=== PATIENT | female | born 1945 | race Caucasian/White ===

== ENCOUNTER 2016-08-01 10:07 | Inpatient (IN) | payer MEDICARE ==
[~2016-08-01] VITALS: Ht 162.6 cm; Wt 84.0 kg
[2016-08-01 11:20] LABS: BASOPHILS 0.4 % (0-2); EOSINOPHILS 2.9 % (0-7); HEMATOCRIT 43.8 % (36.0-48.0); HEMOGLOBIN 14.6 g/dL (12-16); IMMATURE GRANULOCYTES 0.2 % (0-5); MCH 27.2 pg (26.0-34.0); MCHC 33.3 g/dL (31.0-37.0); MCV 81.7 fL (80.0-100.0); MEAN PLATELET VOLUME 11.4 fL (7.4-10.4); MONOCYTES 8.3 % (2-11); NEUTROPHILS 69.2 % (40-80); PLATELET COUNT 386 10x3/uL (130-400); RBC 5.36 10x6/uL (4.00-5.40); RDW 14.5 % (11.5-14.5); WBC 13.9 10x3/uL (4.8-10.8)
[2016-08-01 11:29] LABS: APPEARANCE CLOUDY (CLEAR); BILIRUBIN NEGATIVE (NEGATIVE); COLOR YELLOW (YELLOW); GLUCOSE NEGATIVE (NEGATIVE); KETONE NEGATIVE (NEGATIVE); LEUKOCYTE ESTERASE 2+ (NEGATIVE); NITRITE NEGATIVE (NEGATIVE); PROTEIN TRACE mg/dL (NEGATIVE); SPECIFIC GRAVITY 1.015 (1.005-1.020); UROBILINOGEN NORMAL (NORMAL)
[2016-08-01 11:30] LABS: BACTERIA MANY /hpf (NONE SEEN); EPITHELIAL CELLS 0-5 /hpf (0-5); RED CELLS - URINE 0-5 /hpf (0-5)
[2016-08-01 11:34] LABS: ALBUMIN 3.3 g/dL (3.4-5.0); ALKALINE PHOSPHATASE 69 U/L (46-116); ALT (SGPT) 33 U/L (10-68); BILIRUBIN - TOTAL 0.39 mg/dL (0.2-1.3); CALC OSMOLALITY 285 mosm/kg (275-300); CALCIUM 9.2 mg/dL (8.5-10.1); CARBON DIOXIDE 26.2 mmol/L (21.0-32.0); CHLORIDE - SERUM 105 mmol/L (98-107); CREATININE - SERUM 0.7 mg/dL (0.6-1.3); POTASSIUM - SERUM 3.5 mmol/L (3.5-5.1); PROTEIN - SERUM 7.3 g/dL (6.4-8.2); SODIUM 142 mmol/L (136-145); UREA NITROGEN 12 mg/dL (7-18); eGFR NON AFRICAN AMERICAN 88 mL/min (90-120)
[2016-08-01 11:37] LABS: GLUCOSE 147 mg/dL (74-106)
[2016-08-01 14:35] VITALS: BP 149/75; BMI 31.8
--- NOTE | 2016-08-01 16:51 | NUR ---
Rehab Note- Acute Rehab Prescreen order received. The patient is a new admit. Will need a PT eval prior to acute rehab. Awaiting eval at this time. Will follow the patient at this time. Thank you for this referral! Aylin Basilio RN Clinical Liaison, [facility] Rehab/[place]
--- NOTE | 2016-08-01 18:00 | NUR ---
SCDS ORDERED FOR PT HOWEVER PT DENIES WANTING TO WEAR THEM. PT IS AMBULATORY AT TIMES TO BSC AND TOILET.
[2016-08-01 19:33] LABS: CKMB 0.7 U/L (0.0-3.6); CREATINE KINASE 45 UL (21-215)
[2016-08-01 19:57] LABS: TROPONIN-I < 0.017 ng/mL (0.000-0.060)
--- NOTE | 2016-08-01 21:00 | NUR ---
BS 81, NO COVERAGE PER S/S. PT DENIES PAIN OR NEEDS, BED LOW, CL IN REACH.
[2016-08-01 21:42] VITALS: BP 165/81
--- NOTE | 2016-08-01 22:53 | NUR ---
INFORMED BY LAB KALA THAT PTS IV OUT, ENTERED ROOM, IV CATH LAYING ON TOP OF BED, TIP INTACT, PT STATED THAT SHE HAD A ACCIDENT. HELD PRESSURE ON RIGHT HAND UNTIL BLEEDING STOPPED. CLEAND UP PT, BED AND FLOOR. WILL ATTEMPT TO SITE IV SHORTLY.
[2016-08-01 23:39] VITALS: BP 156/83
[2016-08-01 23:41] LABS: CKMB 0.8 U/L (0.0-3.6); CREATINE KINASE 47 UL (21-215); TROPONIN-I < 0.017 ng/mL (0.000-0.060)
[2016-08-01] MEDS ORDERED: NORVASC5 MG PO (23:42)
[2016-08-01] MEDS ORDERED: LANTUS SOL100 UNIT/1 SC (23:42)
[2016-08-01] MEDS ORDERED: PRINIVIL20 MG PO (23:43)
[2016-08-01] MEDS ORDERED: GLUCOPHAGE500 MG PO (23:43)
[2016-08-01] MEDS ORDERED: MIRALAX17 GM PO (23:44)
[2016-08-01] MEDS ORDERED: HUMULIN R100 U/ML SC (23:45)
[2016-08-01] MEDS ORDERED: NOVOLOG MIX 70/10 ML SC (23:45)
[2016-08-01] MEDS ORDERED: SENNA PLUS TA1 UDTAB PO (23:46)
--- NOTE | 2016-08-02 00:05 | NUR ---
IV RESITED TO RIGHT FOREARM, 22 GAUGE, FIRST ATTEMPT. PT TOLERATED WELL, FLUIDS RESUMED AT PREVIOUS RATE.
[2016-08-02 04:01] VITALS: BP 154/82
--- NOTE | 2016-08-02 04:16 | NUR ---
RESTING WITH EYES CLOSED, RESPERATIONS EVEN, NO S/S DISTRESS NOTED.
[2016-08-02 05:59] LABS: BASOPHILS 0.6 % (0-2); EOSINOPHILS 4.9 % (0-7); HEMATOCRIT 44.5 % (36.0-48.0); HEMOGLOBIN 14.7 g/dL (12-16); IMMATURE GRANULOCYTES 0.3 % (0-5); MCH 27.1 pg (26.0-34.0); MCV 82.1 fL (80.0-100.0); MONOCYTES 11.4 % (2-11); NEUTROPHILS 58.8 % (40-80); PLATELET COUNT 389 10x3/uL (130-400); RBC 5.42 10x6/uL (4.00-5.40); RDW 14.5 % (11.5-14.5); WBC 10.7 10x3/uL (4.8-10.8)
[2016-08-02 06:30] LABS: ALBUMIN 3.2 g/dL (3.4-5.0); ALKALINE PHOSPHATASE 65 U/L (46-116); ALT (SGPT) 36 U/L (10-68); BILIRUBIN - TOTAL 0.45 mg/dL (0.2-1.3); CALC OSMOLALITY 283 mosm/kg (275-300); CALCIUM 8.9 mg/dL (8.5-10.1); CARBON DIOXIDE 27.6 mmol/L (21.0-32.0); CHLORIDE - SERUM 106 mmol/L (98-107); CHOL - HDL RATIO 6.7 ratio (2.3-4.1); CHOLESTEROL, TOTAL 193 mg/dL (0-200); CKMB 1.2 U/L (0.0-3.6); CREATINE KINASE 63 UL (21-215); CREATININE - SERUM 0.5 mg/dL (0.6-1.3); GLUCOSE 86 mg/dL (74-106); HDL CHOLESTEROL 29 mg/dL (32-96); LDL CHOLESTEROL 146 mg/dL (0-100); POTASSIUM - SERUM 3.3 mmol/L (3.5-5.1); PROTEIN - SERUM 7.2 g/dL (6.4-8.2); SODIUM 144 mmol/L (136-145); TRIGLYCERIDE 90 mg/dL (30-200); TROPONIN-I < 0.017 ng/mL (0.000-0.060); UREA NITROGEN 8 mg/dL (7-18); eGFR NON AFRICAN AMERICAN > 90 mL/min (90-120)
[2016-08-02 08:24] VITALS: BP 184/95
--- NOTE | 2016-08-02 09:39 | NUR ---
REHAB PRESCREENING Rehab continues to follow this patient for PT/OT/ST evaluations. Thank you for this referral! Barbra Temple, SPECIMEN TECHNICIAN Poultry Hatchery Supervisor, Rehab
--- NOTE | 2016-08-02 10:03 | NUR ---
PT INCONTINENT OF URINE. CHANGED LINENS AND PROVIDED NEW GOWN. PULLED PT UP IN BED. PT SWALLOWED MORNING MEDS WITHOUT ANY DIFFICULITES. PT RESTING AND DENIES ANY CURRENT PAIN OR NEEDS. CL IN REACH. WILL CTM.
--- NOTE | 2016-08-02 11:52 | NUR ---
FSBS 164. PT REC'D 2 UNITS PER SS INSULIN. PT SITTING UP IN BED EATING ICE CHIPS WITH FAMILY AT BEDSIDE. FAMILY STATES PT IS MUCH MORE CLEAR AND ORIENTED COMPARED TO YESTERDAY. NO FURTHER NEEDS AT THIS TIME. CL IN REACH, BED IN LOWEST, SIDE RAILS X2. WILL CTM.
[2016-08-02 12:01] VITALS: BP 186/95
--- NOTE | 2016-08-02 13:32 | NUR ---
RATIONALE FOR SCD'S EXPLAINED. REFUSED SCD'S
--- NOTE | 2016-08-02 14:03 | NUR ---
INITIATED PTS IVPB ROCEPHIN TO BE INFUSED OVER 30 MINS. INFUSING VIA R.FA PIV WITH DRSG CDI AND SWAB CAPS IN USE. PT IS SITTING UP IN BEDSIDE CHAIR WITH FAMILY VISITING. PT DENIES ANY CURRENT PAIN OR NEEDS. CL IN REACH, WILL CTM.
[2016-08-02 14:51] VITALS: Ht 162.6 cm; Wt 84.0 kg
[2016-08-02 16:00] VITALS: BP 165/135
--- NOTE | 2016-08-02 16:50 | NUR ---
CT CAME AND NOTIFIED ME THAT THEY NEED A [address] SCAN. ATTEMPTED X2 AND WAS NOT SUCCESSFUL. HAD RIC, MEDICAL CLINIC MANAGER COME AND SHE PLACED A 20 GUAGE IN PTS R.HAND X2 ATTEMPTS. REMOVED R.FA PIV THAT WAS A 22 GUAGE WITH CATHETER TIP FULLY INTACT. PT READY TO HAVE CT DONE. WILL CTM.
--- NOTE | 2016-08-02 17:03 | NUR ---
OT NOTE: PT COMPLETED SIT TO STAND WITH SBA/CGA. PT COMPLETED BUE AROM EXS FOR INCREASED AX SUSHIL. PT COMPLETED GROOMING WITH SET UP. THANK YOU, ALEC MORA/Charles
--- NOTE | 2016-08-02 19:20 | NUR ---
RECEIVED REPORT, PT SLEEPING, BED IS LOW, SRX2, BED ALARM IS ON, WILL CONTINUE PLAN OF CARE
[2016-08-02 20:19] VITALS: BP 158/79
[2016-08-03 00:41] VITALS: BP 178/89
--- NOTE | 2016-08-03 04:00 | NUR ---
ASSESSMENT COMPLETE, SEE FLOWSHEET, PT SLEEPING, BED ALARM IS ON, SRX2, BED IS LOW, WILL CONTINUE TO MONITOR
[2016-08-03 04:23] VITALS: BP 173/84
[2016-08-03 05:50] LABS: BASOPHILS 0.8 % (0-2); EOSINOPHILS 5.6 % (0-7); HEMATOCRIT 42.2 % (36.0-48.0); HEMOGLOBIN 13.9 g/dL (12-16); IMMATURE GRANULOCYTES 0.3 % (0-5); LYMPHOCYTES 26.9 % (15-50); MCHC 32.9 g/dL (31.0-37.0); MCV 81.9 fL (80.0-100.0); MEAN PLATELET VOLUME 11.3 fL (7.4-10.4); NEUTROPHILS 54.4 % (40-80); PLATELET COUNT 370 10x3/uL (130-400); RBC 5.15 10x6/uL (4.00-5.40); RDW 14.6 % (11.5-14.5); WBC 9.5 10x3/uL (4.8-10.8)
[2016-08-03 06:27] LABS: ALBUMIN 3.1 g/dL (3.4-5.0); ALKALINE PHOSPHATASE 66 U/L (46-116); ALT (SGPT) 34 U/L (10-68); BILIRUBIN - TOTAL 0.53 mg/dL (0.2-1.3); CALCIUM 8.8 mg/dL (8.5-10.1); CARBON DIOXIDE 24.3 mmol/L (21.0-32.0); CHLORIDE - SERUM 106 mmol/L (98-107); CREATININE - SERUM 0.5 mg/dL (0.6-1.3); PROTEIN - SERUM 6.6 g/dL (6.4-8.2); SODIUM 142 mmol/L (136-145); eGFR NON AFRICAN AMERICAN > 90 mL/min (90-120)
[2016-08-03 06:29] LABS: CALC OSMOLALITY 286 mosm/kg (275-300); GLUCOSE 176 mg/dL (74-106); POTASSIUM - SERUM 4.1 mmol/L (3.5-5.1); UREA NITROGEN 13 mg/dL (7-18)
[2016-08-03 08:00] VITALS: BP 180/84
--- NOTE | 2016-08-03 11:43 | NUR ---
This patient meets criteria for the IRF and will be accepted today if the physician agrees. Albina Campbell RN Clinical Liaison, Rehab
--- NOTE | 2016-08-03 11:57 | NUR ---
FSBS 259. PT REC'D 6 UNITS OF INSULIN PER SS. PT SITTING UP IN BEDSIDE CHAIR RESTING QUIETLY. DENIES ANY CURRENT PAIN OR NEEDS AT THIS TIME. CL IN REACH. WILL CTM.
[2016-08-03 12:00] VITALS: BP 141/72
--- NOTE | 2016-08-03 14:42 | NUR ---
INITIATED PTS IVPB ROCEPHIN INFUSING VIA R.HAND PIV WITH DRSG CDI AND SWAB CAPS IN USE. PT RESTING QUIETLY IN BED WITH EYES CLOSED. NO CURRENT NEEDS NOTED AT THIS TIME. WILL CTM.
[2016-08-03 15:52] VITALS: BP 160/67
[2016-08-03] MEDS ORDERED: PLAVIX75 MG PO (15:54)
[2016-08-03] MEDS ORDERED: ASPIRIN81 MG PO (15:54)
[2016-08-03] MEDS ORDERED: LIPITOR20 MG PO (15:54)
[2016-08-03] MEDS ORDERED: PROTONIX40 MG PO (15:55)
--- NOTE | 2016-08-03 16:52 | NUR ---
FSBS 225. PT REC'D 4 UNITS OF HER INSULIN PER SS. PT IS RESTING QUIETLY IN BED AND DENIES ANY CURRENT PAIN OR NEEDS. CL IN REACH. WILL CTM.
--- NOTE | 2016-08-03 18:39 | NUR ---
DISCHARGE TEACHING PROVIDED BUT PT UNABLE TO SIGN DUE TO COGNITIVE DELAY. REPORT CALLED TO RODERICK FROM [facility]PATIENT [facility] GOING TO ROOM 1111B. NO FURTHER NEEDS. PT BEING TRANSPORTED NOW.
== END 2016-08-03 18:43 | DRG 65 ==
LOC: D.ER 10:07 → D.M2 14:09
PROVIDERS: Emergency Medicine Emergency Medical Services; ADMIT Family Medicine
DX: I63.233 Cerebral infarction due to unspecified occlusion or stenosis of bilateral carotid arteries (principal); N39.0 Urinary tract infection, site not specified; E11.65 Type 2 diabetes mellitus with hyperglycemia; R40.2143 Coma scale, eyes open, spontaneous, at hospital admission; R40.2363 Coma scale, best motor response, obeys commands, at hospital admission; R40.2253 Coma scale, best verbal response, oriented, at hospital admission

== ENCOUNTER 2016-08-03 19:09 | Inpatient (IN) | payer MEDICARE ==
[~2016-08-03] VITALS: Ht 162.6 cm; Wt 91.2 kg
[~2016-08-03 19:09] MED LIST: ASPIRIN81 MG PO; GLUCOPHAGE500 MG PO; HUMULIN R100 U/ML SC; LANTUS SOL100 UNIT/1 SC; LIPITOR20 MG PO; MIRALAX17 GM PO; NORVASC5 MG PO; NOVOLOG MIX 70/10 ML SC; PLAVIX75 MG PO; PRINIVIL20 MG PO; PROTONIX40 MG PO; SENNA PLUS TA1 UDTAB PO
--- NOTE | 2016-08-03 19:15 | NUR ---
PT RESTING IN BED, ADMISSION PROCESS INITIATED, PT STATES SHE IS VERY TIRED, DIFFICULT TO ARROUSE.
--- NOTE | 2016-08-03 20:30 | NUR ---
PT AROUSED, PT UNABLE TO SIGN NAME OR APPEAR TO UNDERSTAND THE ADMISSION FORMS. PT HAD DIFFICULTY WITH HTE MOTOR SKILLS TO WRITE OWN NAME. ALLOWED EXTRA TIME AND PT APPEARED TO WRITE A LETTER ON THE FORM. WILL WAIT TILL MORNING FOR FAMILY MEMBER OR OTHER TO ASSIST WITH THE SIGNING OF FORMS. PT INCONTINENT OF URINE, CLEANSED AND CHANGED, PT APPEARS TO BE UNAWARE OF BEING INCONTINENT. RESPIRATIONS REGULAR AND UNLABORED.
[2016-08-03 22:08] VITALS: BP 173/82; BMI 34.5
--- NOTE | 2016-08-04 03:39 | NUR ---
INCONTINENT OF URINE, CLEANSED, PT AWOKE DURING INTERVENTION, NEEDS ASSISTANCE TO ROLL OVER.
[2016-08-04 06:33] LABS: BASOPHILS 0.4 % (0-2); EOSINOPHILS 6.3 % (0-7); HEMATOCRIT 43.7 % (36.0-48.0); HEMOGLOBIN 14.4 g/dL (12-16); IMMATURE GRANULOCYTES 0.3 % (0-5); LYMPHOCYTES 25.8 % (15-50); MCH 26.9 pg (26.0-34.0); MCV 81.7 fL (80.0-100.0); MEAN PLATELET VOLUME 11.2 fL (7.4-10.4); MONOCYTES 10.6 % (2-11); NEUTROPHILS 56.6 % (40-80); PLATELET COUNT 347 10x3/uL (130-400); RBC 5.35 10x6/uL (4.00-5.40); RDW 14.4 % (11.5-14.5); WBC 9.6 10x3/uL (4.8-10.8)
[2016-08-04 06:54] LABS: CALC OSMOLALITY 282 mosm/kg (275-300); CALCIUM 8.8 mg/dL (8.5-10.1); CARBON DIOXIDE 26.3 mmol/L (21.0-32.0); CHLORIDE - SERUM 108 mmol/L (98-107); CREATININE - SERUM 0.5 mg/dL (0.6-1.3); GLUCOSE 131 mg/dL (74-106); POTASSIUM - SERUM 3.5 mmol/L (3.5-5.1); SODIUM 142 mmol/L (136-145); UREA NITROGEN 8 mg/dL (7-18); eGFR NON AFRICAN AMERICAN > 90 mL/min (90-120)
--- NOTE | 2016-08-04 07:50 | NUR ---
PT IS RESTING IN BED WITH EYES OPEN. ALERT TO SELF. PT IS SLOW TO RESPOND TO ANY QUESTIONING. SHE OBEYS COMMANDS, BUT SEEMS IF SHE DOES NOT UNDERSTAND WHEN ASKED TO SPEAK. NOTED TO BE INC. OF URINE. TONI CARE AND PAD CHANGE DONE. SR'S ARE UP X 3 IN BED. CALL LIGHT AND BEDSIDE TABLE ARE WITHIN EASY REACH.
--- NOTE | 2016-08-04 09:56 | NUR ---
PT IS PARTICIPATING IN THERAPY AT THIS TIME.
[2016-08-04 11:35] VITALS: BP 159/74
--- NOTE | 2016-08-04 12:26 | NUR ---
PT IS RESTING IN HER ROOM EATING LUNCH. VISITOR IS AT BEDSIDE.
[2016-08-04 12:39] VITALS: Ht 162.6 cm; Wt 91.2 kg
--- NOTE | 2016-08-04 14:38 | NUR ---
PT IS RESTING IN BED BETWEEN THERAPY. NO NEEDS VOICED.
--- NOTE | 2016-08-04 16:00 | NUR ---
RESTING QUIETLY.CL IN REACH.
--- NOTE | 2016-08-04 17:34 | NUR ---
PT IS RESTING IN BED WITH HOB ELEVATED 45 DEGREES FEEDING HERSELF SUPPER. NO SWALLOW PROBLEMS NOTED.
[2016-08-04 20:10] VITALS: BP 138/64
--- NOTE | 2016-08-05 | NUR ---
RESTING IN BED, EYES CLOSED.
--- NOTE | 2016-08-05 02:00 | NUR ---
IN BED, EYES CLOSED. SNORING SOFTLY.
--- NOTE | 2016-08-05 04:07 | NUR ---
RESTING IN BED, EYES CLOSED. CONTINUES SNORING SOFTLY. NO DISTRESS NOTED.
--- NOTE | 2016-08-05 06:15 | NUR ---
CLEANSED AND CHANGED PATIENT FROM LARGE URINARY INCONTINENCE. REQUIRED A COMPLETE LINEN CHANGE WELL FRESH SCRUB TOP AND PULL-UP. FSBS 89. GAVE PATIENT 4 OZS ORANGE JUICE TO SUPPORT BLOOD SUGAR UNTIL BREAKFAST.
[2016-08-05 07:16] LABS: BASOPHILS 0.5 % (0-2); EOSINOPHILS 4.8 % (0-7); HEMATOCRIT 42.7 % (36.0-48.0); IMMATURE GRANULOCYTES 0.3 % (0-5); LYMPHOCYTES 27.1 % (15-50); MCH 26.8 pg (26.0-34.0); MCHC 32.8 g/dL (31.0-37.0); MCV 81.8 fL (80.0-100.0); MEAN PLATELET VOLUME 11.4 fL (7.4-10.4); MONOCYTES 7.4 % (2-11); NEUTROPHILS 59.9 % (40-80); PLATELET COUNT 361 10x3/uL (130-400); RBC 5.22 10x6/uL (4.00-5.40); RDW 14.6 % (11.5-14.5); WBC 10.7 10x3/uL (4.8-10.8)
[2016-08-05 07:24] LABS: CALC OSMOLALITY 285 mosm/kg (275-300); CALCIUM 8.9 mg/dL (8.5-10.1); CARBON DIOXIDE 26.8 mmol/L (21.0-32.0); CHLORIDE - SERUM 106 mmol/L (98-107); CREATININE - SERUM 0.6 mg/dL (0.6-1.3); GLUCOSE 114 mg/dL (74-106); POTASSIUM - SERUM 3.3 mmol/L (3.5-5.1); SODIUM 143 mmol/L (136-145); eGFR NON AFRICAN AMERICAN > 90 mL/min (90-120)
[2016-08-05 07:25] LABS: UREA NITROGEN 12 mg/dL (7-18)
[2016-08-05 07:26] LABS: HEMOGLOBIN A1C 6.6 % (4.8-6.0)
--- NOTE | 2016-08-05 07:40 | NUR ---
RESTING QUIETLY IN BED CALL LIGHT IN REACH
--- NOTE | 2016-08-05 10:00 | NUR ---
PT IS PARTICIPATING IN THERAPY AT THIS TIME.
[2016-08-05 11:16] VITALS: BP 149/81
--- NOTE | 2016-08-05 15:24 | NUR ---
PT RESTING IN BED WITH EYES CLOSED.
--- NOTE | 2016-08-05 17:47 | NUR ---
PT IS RESTING IN HER WC IN HER ROOM AWAITING SUPPER. NO ACUTE DISTRESS NOTED.
[2016-08-05 19:08] VITALS: BP 162/70
--- NOTE | 2016-08-05 19:40 | NUR ---
ASSISTED PATIENT TO WHERE SHE URINATED AND HAD A MEDIUM VOLUME SOFT BM. ALSO HAD A VERY LARGE URINE INCONTINENCE IN BRIEF PRIOR TO TRIP TO . CLEANSED HER FROM THIS AND BM. APPLIED FRESH PULL-UP BRIEF AND RETURNED HER TO BED.
--- NOTE | 2016-08-05 21:30 | NUR ---
ASSESSMENT COMPLETE. FSBS 151. HELD SLIDING SCALE INSULIN PATIENT NOW RECEIVES LANTUS INSULIN, 54 UNITS SC IN LUQ ABDOMEN. GAVE PATIENT HER HS SNACK.
--- NOTE | 2016-08-05 22:05 | NUR ---
RETURNED AND LOWERED PATIENT'S HOB ON COMPLETION OF HS SNACK.
--- NOTE | 2016-08-06 | NUR ---
IN BED, RESTING QUIETLY, EYES CLOSED.
--- NOTE | 2016-08-06 01:55 | NUR ---
AWOKE PATIENT FOR TOILETING. ASSISTED HER UP TO BR TO URINATE. PATIENT HAD A VERY SMALL BM AND SCANT URINE AFTER LARGE URINE INCONTINENCE IN BREIF. CHANGED HER BRIEF AND PINK PAD AND RETURNED HER TO BED.
--- NOTE | 2016-08-06 04:45 | NUR ---
RESTING IN BED, EYES CLOSED. RESPIRING QUIETLY.
--- NOTE | 2016-08-06 07:30 | NUR ---
PT IS RESTING IN BED WITH EYES CLOSED. AWOKE EASILY TO VERBAL STIMULI. ALERT TO SELF AND PLACE. PT STATES SHE SLEPT WELL, AND HAS NO PAIN, BUT WOULD NOT ANSWER ANY OTHER QUESTIONS. INC. CARE GIVEN AT THIS TIME, AND PT DRESSED FOR THERAPY. SR'S ARE UP X 3 IN BED. CALL LIGHT AND BEDSIDE TABLE ARE WITHIN EASY REACH.
[2016-08-06 07:45] VITALS: BP 158/83
--- NOTE | 2016-08-06 09:55 | NUR ---
PT IS PARTICIPATING IN THERAPY AT THIS TIME.
--- NOTE | 2016-08-06 11:40 | NUR ---
PT IS PARTICIPATING IN THERAPY AT THIS TIME.
--- NOTE | 2016-08-06 14:18 | NUR ---
PT IS RESTING IN BED WITH EYES CLOSED.
--- NOTE | 2016-08-06 16:34 | NUR ---
PT ASSISTED TO THE BATHROOM WITH SBA FOR TOILETING. SMALL BM NOTED. PT WAS INC. OF A LARGE AMOUNT OF URINE. INC CARE AND BRIEF CHANGE DONE. NO FURTHER NEEDS VOICED.
--- NOTE | 2016-08-06 18:30 | NUR ---
RESTING QUIETLY IN BED CALL LIGHT IN REACH
[2016-08-06 19:00] VITALS: BP 163/71
--- NOTE | 2016-08-06 19:00 | NUR ---
ASSISTED PATIENT UP TO BR TO TOILET. PATIENT HAD SMALL AMT OF URINE IN COMMODE WELL A MEDIUM VOLUME BM. ALSO CHANGED HER BRIEF DUE TO PRIOR MODERATE INCONTINENCE WHILE SEATED AT BEDSIDE.
--- NOTE | 2016-08-06 21:00 | NUR ---
FSBS 103. GAVE PATIENT HS SNACK CONSISTING OF 8 OZS 2% MILK AND 6 KEITH CRAX SQUARES. ASSESSMENT COMPLETE. SCHEDULED DOSE OF 54 UNITS OF LANTUS INSULIN WAS GIVEN TO PATIENT SC INJ IN RIGHT ABDOMEN.
--- NOTE | 2016-08-06 21:45 | NUR ---
REMAINS AWAKE. LOWERED HOB TO 15 DEGREES FOR HS. DENIES NEEDS.
--- NOTE | 2016-08-06 23:45 | NUR ---
PATIENT WAS JUST ASSISTED TO SHOWER, DRESSED AND RETURNED TO BED AFTER FULL LINEN CHANGE. ALL ASSISTANCE WAS PROVIDED BY ROLLING DOWN MACHINE OPERATOR.
--- NOTE | 2016-08-07 02:00 | NUR ---
CONTINUES IN BED, EYES CLOSED. NO APPARENT DISTRESS.
--- NOTE | 2016-08-07 04:40 | NUR ---
RESTING QUIETLY IN BED, EYES CLOSED.
--- NOTE | 2016-08-07 06:00 | NUR ---
IN BED, AWAKE. WATCHING TV AFTER RECENT PULL-UP AND BOTTOM LINEN CHANGE DUE TO LARGE URINARY INCONTINENCE. FSBS 95. DENIES NEEDS.
--- NOTE | 2016-08-07 08:30 | NUR ---
SITTING UP EATING BREAKFAST DENIES NEEDS CALL LIGHT IN REACH
--- NOTE | 2016-08-07 10:02 | NUR ---
PT IS RESTING QUIETLY IN BED WITH EYES CLOSED. RESPS ARE EVEN AND UNLABORED. NO ACUTE DISTRESS NOTED.
[2016-08-07 10:52] VITALS: BP 151/61
--- NOTE | 2016-08-07 12:34 | NUR ---
PT IS LYING IN BED WITH HOB ELEVATED 45 DEGREES. FEEDING SELF LUNCH. NO ACUTE DISTRESS NOTED.
--- NOTE | 2016-08-07 15:00 | NUR ---
RESTING IN BED WITH EYES OPEN. 2 FAMILY MEMBERS AT BEDSIDE. NO DISTRESS NOTED.
--- NOTE | 2016-08-07 17:32 | NUR ---
PT IS RESTING IN BED FEEDING SELF SUPPER. NO NEEDS VOICED.
--- NOTE | 2016-08-07 20:07 | NUR ---
PT DENIES PAIN, RESTING IN SUPINE POSITION WATCHING TV. ASSISTED WITH COMPLETING MENU.
[2016-08-08 02:46] VITALS: BP 165/61
--- NOTE | 2016-08-08 04:43 | NUR ---
PT RESTING WITH EYES CLOSED, RESPIRATIONS REGULAR AND UNLABORED, NO S/S OF ACUTE DISTRESS.
--- NOTE | 2016-08-08 06:55 | NUR ---
PT INCONTINENT, PT WHEN ENCOURAGEED WILL GET UP AND URINATE IN TOILET.
[2016-08-08 07:35] LABS: BASOPHILS 0.4 % (0-2); EOSINOPHILS 4.9 % (0-7); HEMATOCRIT 42.1 % (36.0-48.0); HEMOGLOBIN 13.9 g/dL (12-16); IMMATURE GRANULOCYTES 0.2 % (0-5); LYMPHOCYTES 24.3 % (15-50); MCH 27.2 pg (26.0-34.0); MCV 82.4 fL (80.0-100.0); MEAN PLATELET VOLUME 11.8 fL (7.4-10.4); MONOCYTES 10.1 % (2-11); NEUTROPHILS 60.1 % (40-80); PLATELET COUNT 332 10x3/uL (130-400); RBC 5.11 10x6/uL (4.00-5.40); RDW 14.7 % (11.5-14.5); WBC 9.8 10x3/uL (4.8-10.8)
[2016-08-08 07:54] LABS: CALC OSMOLALITY 281 mosm/kg (275-300); CARBON DIOXIDE 29.7 mmol/L (21.0-32.0); CHLORIDE - SERUM 105 mmol/L (98-107); CREATININE - SERUM 0.5 mg/dL (0.6-1.3); GLUCOSE 89 mg/dL (74-106); POTASSIUM - SERUM 3.6 mmol/L (3.5-5.1); SODIUM 142 mmol/L (136-145); UREA NITROGEN 13 mg/dL (7-18); eGFR NON AFRICAN AMERICAN > 90 mL/min (90-120)
--- NOTE | 2016-08-08 08:15 | NUR ---
SITTING UP EATING BREAKFAST DENIES NEEDS CALL LIGHT IN REACH
--- NOTE | 2016-08-08 08:15 | NUR ---
PT RESTING IN BED EATING BREAKFAST TOLERATING WELL CALL LIGHT IN REACH WILL MONITER
[2016-08-08 12:19] VITALS: BP 148/64
--- NOTE | 2016-08-08 16:32 | NUR ---
PT RESTING IN BED WITH EYES OPEN CALL LIGHT IN REACH WILL MONITER
--- NOTE | 2016-08-08 19:22 | NUR ---
PT SITTING UP IN W/C, APPEARS TO BE DOZING.
[2016-08-08 19:24] VITALS: BP 136/87
[2016-08-09 10:32] VITALS: BP 141/60
--- NOTE | 2016-08-09 15:13 | NUR ---
PT RESTING IN BED WITH EYES OPEN CALL LIGHT IN REACH NO PROBLEMS WILL MONITER
--- NOTE | 2016-08-09 17:53 | NUR ---
RESTING QUIETLY.CL IN REACH.
--- NOTE | 2016-08-09 20:00 | NUR ---
PT IN BED WITH HOB UP FOR COMFORT. WATCHINGTV. NO IV. NO 02. INCONTINENT. FSBS ACHS. BED IN LOWEST POSITION AND CALL LIGHT WITHIN REACH.
[2016-08-09 20:16] VITALS: BP 119/69
--- NOTE | 2016-08-10 | NUR ---
PT LYING IN BED. EYES CLOSED. CHEST RISING AND FALLING. BED IN LOWEST POSITION AND CALL LIGHT WITHIN REACH.
--- NOTE | 2016-08-10 00:20 | NUR ---
RESTING QUIETLY, EYES CLOSED. SANJANA ALARM IS ARMED. SR UP X3.
--- NOTE | 2016-08-10 04:00 | NUR ---
PT LYING IN BED. RESTING QUIETLY. BED IN LOWEST POSITION AND CALL LIGHT WITHIN REACH.
[2016-08-10 05:52] LABS: BASOPHILS 0.6 % (0-2); EOSINOPHILS 5.5 % (0-7); HEMOGLOBIN 13.6 g/dL (12-16); IMMATURE GRANULOCYTES 0.4 % (0-5); LYMPHOCYTES 28.6 % (15-50); MCH 27.1 pg (26.0-34.0); MCHC 32.4 g/dL (31.0-37.0); MCV 83.7 fL (80.0-100.0); MEAN PLATELET VOLUME 11.6 fL (7.4-10.4); MONOCYTES 9.5 % (2-11); NEUTROPHILS 55.4 % (40-80); PLATELET COUNT 318 10x3/uL (130-400); RBC 5.02 10x6/uL (4.00-5.40); RDW 14.5 % (11.5-14.5); WBC 10.3 10x3/uL (4.8-10.8)
[2016-08-10 06:05] LABS: CALC OSMOLALITY 281 mosm/kg (275-300); CALCIUM 9.1 mg/dL (8.5-10.1); CARBON DIOXIDE 28.1 mmol/L (21.0-32.0); CHLORIDE - SERUM 105 mmol/L (98-107); CREATININE - SERUM 0.4 mg/dL (0.6-1.3); GLUCOSE 87 mg/dL (74-106); SODIUM 142 mmol/L (136-145); UREA NITROGEN 13 mg/dL (7-18); eGFR NON AFRICAN AMERICAN > 90 mL/min (90-120)
--- NOTE | 2016-08-10 07:51 | NUR ---
SITTING UP IN WC EATING BREAKFAST.CL IN REACH.
[2016-08-10 09:26] VITALS: BP 159/71
--- NOTE | 2016-08-10 09:47 | NUR ---
PT IS PARTICIPATING IN THERAPY AT THIS TIME.
--- NOTE | 2016-08-10 12:02 | NUR ---
PT IS PARTICIPATING IN SPEECH THERAPY AT THIS TIME.
--- NOTE | 2016-08-10 12:18 | RHP ---
PATIENT: JEREMY PUCKETT MEDICAL RECORD: [id number] ACCOUNT: [id number] [facility] AD[facility] DATE: 08/03/16 REHABILITATION HISTORY AND PHYSICAL EXAMINATION POST ADMISSION PHYSICIAN EXAMINATION Post-admission Physical Examination and History and Physical DATE OF ADMISSION: 08/03/2016 ADMITTING DIAGNOSES: Cerebrovascular accident with left body involvement and also acute/subacute infarction in the right occipital lobe. HISTORY OF PRESENT ILLNESS: The patient is a 70-year-old female patient admitted to inpatient rehab with a right occipital lobe infarction. She presented to Emergency Room on August 01 with acute mental status changes, confusion, slurred speech and left-sided weakness. 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 According to her sister, she has a former mental retardation, but is functional. Sister states she did not have autism or CP, she is just a little bit slow. CT of her head showed an acute/subacute infarction of occipital lobe. Her general appearance is alert, awake, conversant, face symmetrical, left-sided weakness, slurred speech, but no gross deficits. She is admitted for PT, OT and speech eval. Bedside swallow exam showed oropharyngeal dysphagia with no overt signs of aspiration, but recommended mechanical soft diet, thin liquids, intermittent supervision, small sips and bites. Head of bed elevated to 90 degrees with aspiration precautions, speech therapy, continue to follow for 5-7 days for safety, dietary tolerance and dietary upgrades, get back to her prior level of function, definitely will benefit from inpatient rehab. COMORBIDITIES: In this patient include mental retardation, left-sided weakness, slurred speech, carotid artery stenosis, diabetes, UTI, recent fall, leukocytosis, fatigue, weakness, acute mental status changes and some noted confusion. PAST MEDICAL HISTORY: Significant for diabetes and mental retardation. PAST SURGICAL HISTORY: Includes hysterectomy. ALLERGIES: No known drug allergies. CURRENT MEDICATIONS: Include Lipitor 20 mg daily, lisinopril 20 mg daily, Protonix 40 mg daily, metformin 750 mg b.i.d. with meals, Plavix 75 mg daily, aspirin chewable 81 mg daily. She is on instant glucose and glucagon p.r.n. protocol. She is on low resistant sliding scale before meals and at bedtime of Humulin. She is on Lantus 54 units daily, senna 2 tabs b.i.d. and polyethylene glycol 17 g in 8 ounces of water daily. HABITS: No tobacco use. FAMILY HISTORY: Noncontributory. SOCIAL HISTORY: The patient hopes to return back to [facility] and get back to her prior level of functioning. HISTORY AND PHYSICAL [id number] JEREMY PUCKETT REVIEW OF SYSTEMS: GENERAL: Denies weakness or fatigue. HEENT: She denies cold, cough, or congestion. CARDIOVASCULAR: Denies chest pain. PHYSICAL EXAMINATION: VITAL SIGNS: Stable, afebrile. GENERAL: An elderly female, in no acute distress, alert upon exam. HEENT: Normocephalic and atraumatic. Mucosa moist. NECK: Supple. No lymphadenopathy. LUNGS: Clear at this time. HEART: ____ rate and rhythm. ABDOMEN: Benign. EXTREMITIES: No clubbing, cyanosis, or edema. NEUROLOGIC: She is slow to mentate. She is easily redirected. Neurologically, she also has some noted weakness, especially on her left side. LABORATORY DATA: Her white count is 9.6, H&H of 14 and 44, and platelet count was noted to be 347. Sodium 142, potassium 3.5, BUN and creatinine of 8 and 0.5 and blood sugar was noted to be 131. ASSESSMENT: This is a 70-year-old female patient admitted to rehab with a working diagnosis of new onset cerebrovascular accident with left body involvement, also involving her right occipital lobe. The patient has potential to make improvement. We instituted the following multidisciplinary therapies including, but not limited to, physical, occupational, respiratory, speech, nutritional services, prosthetics and orthotics. Given her complex condition and risk for more complications, rehabilitation services cannot be provided at a low level of care such as a care home facility. PLAN: 1. Admit to [facility] rehab for intensive inpatient therapy to include the following disciplines: A. Physical therapy to improve gait, all transfer skills and bed mobility to a modified independent level. B. Occupational therapy to improve activities of daily at a modified independent level. C. Case management to assist with discharge planning and placement options. D. Nutrition to assist with nutritional needs. E. Rehabilitation nursing to assist in monitoring the patient's underlying medical conditions and to assist with any type of bowel or bladder management. 2. The patient's current medication and medical care will be continued. 3. The patient will be placed on standard fall precautions. 4. The patient's estimated length of stay is approximately 7-10 days. 5. We will watch her closely with speech therapy and have them work with her, make sure she does not aspirate or develop an aspiration pneumonia. We will discuss this patient during care team staff meeting this week. TRANSINT:[id number] Voice Confirmation ID: [id number] DOCUMENT ID: [id number] MARY notes whether there has been none or any medical/functional change since admission: - HISTORY AND PHYSICAL [id number] JEREMY PUCKETT attests patient continues to be appropriate for IRF: - MARTI LOPEZ MD at 1218 CC: [id number] DICTATION DATE: 08/04/16822 COMMUNICATIONS INTERN: 08/04/16 1308 ADM IN [place] [id number] [place] [address]
--- NOTE | 2016-08-10 16:55 | NUR ---
CARE TEAM MEETING: FAMILY ATTENDED MEETING. PATIENT WILL DISCHARGE FROM REHAB ON 08/15/16 BACK TO ACUTE FLOOR , PER DR. RAZO FOR PROCEDURE AND THEN WILL DISCHARGE BACK TO HER HOME AT [facility]. WILL CONTINUE TO FOLLOW WITH PATIENT .
--- NOTE | 2016-08-10 17:49 | NUR ---
PT IS FEEDING SELF SUPPER IN HER ROOM. NO DISTRESS NOTED.
[2016-08-10 18:58] VITALS: BP 126/86
--- NOTE | 2016-08-10 20:00 | NUR ---
PT IN BED WITH HOB UP FOR COMFORT. WATCHING TV. NO IV. NO 02. INCONTINENT AT TIMES. FSBS ACHS. BED IN LOWEST POSITION AND CALL LIGHT WITHIN REACH.
--- NOTE | 2016-08-11 | NUR ---
PT IN BED WITH HOB UP FOR COMOFRT. EYES CLOSED. CHEST RISING AND FALLING. BED IN LOWEST POSITION AND CALL LIGHT WITHIN REACH.
--- NOTE | 2016-08-11 02:50 | NUR ---
RESTING IN BED, EYES CLOSED. NO DISTRESS NOTED.
--- NOTE | 2016-08-11 06:46 | NUR ---
RESTING QUIETLY IN BED CALL LIGHT IN REACH
--- NOTE | 2016-08-11 08:25 | NUR ---
PT UP EATING BREAKFAST, AM MEDS ADMINISTERED. PT DENIES NEEDS. WCTM.
--- NOTE | 2016-08-11 11:11 | NUR ---
PT FSBS 124. NO INSULIN GIVEN.
--- NOTE | 2016-08-11 13:15 | NUR ---
PT SITTING UP IN WC WATCHING TV, DENIES NEEDS.
[2016-08-11 14:31] VITALS: BP 167/85
[2016-08-11 19:10] VITALS: BP 132/66
--- NOTE | 2016-08-11 19:46 | NUR ---
PT RECEIVED IN BED WITH EYES OPEN WATCHING TV. NO COMPLAINTS OR NEEDS MADE KNOWN AT THIS TIME. CALL LIGHT IN REACH. WILL CONTINUE TO OBSERVE.
--- NOTE | 2016-08-11 23:33 | NUR ---
PT IN BED WITH EYES OPEN AT THIS TIME. ASSISTED TO BATHROOM WITH MIN ASSIST WITH TRANSFERS. UNINATION ONLY NOTED. NO NEEDS OR CONCERNS NOTED CALL LIGHT IN REACH.
--- NOTE | 2016-08-12 02:29 | NUR ---
PT IN BED WITH EYES CLOSED AND CHEST RISING. NO CONCERNS NOTED. CALL LIGHT IN REACH.
[2016-08-12 06:05] LABS: BASOPHILS 0.6 % (0-2); EOSINOPHILS 5.8 % (0-7); HEMATOCRIT 41.2 % (36.0-48.0); HEMOGLOBIN 13.5 g/dL (12-16); IMMATURE GRANULOCYTES 0.2 % (0-5); LYMPHOCYTES 26.5 % (15-50); MCHC 32.8 g/dL (31.0-37.0); MCV 82.4 fL (80.0-100.0); MEAN PLATELET VOLUME 12.4 fL (7.4-10.4); NEUTROPHILS 55.9 % (40-80); PLATELET COUNT 336 10x3/uL (130-400); RDW 14.7 % (11.5-14.5); WBC 10.7 10x3/uL (4.8-10.8)
[2016-08-12 06:19] LABS: CALC OSMOLALITY 282 mosm/kg (275-300); CARBON DIOXIDE 29.1 mmol/L (21.0-32.0); CHLORIDE - SERUM 104 mmol/L (98-107); GLUCOSE 104 mg/dL (74-106); POTASSIUM - SERUM 3.8 mmol/L (3.5-5.1); SODIUM 142 mmol/L (136-145); UREA NITROGEN 13 mg/dL (7-18)
--- NOTE | 2016-08-12 06:19 | NUR ---
PT IN BED WITH EYES CLOSED AND CHEST RISING. RECEIVED AM MEDICATIONS PER MAR WITHOUT DIFFICULTY. FSBS 97. MIN ASSIST GIVEN WITH TOILETING AND CLOTHING. NO CONCERNS NOTED. CALL LIGHT IN REACH.
[2016-08-12 06:21] LABS: CREATININE - SERUM 0.6 mg/dL (0.6-1.3); eGFR NON AFRICAN AMERICAN > 90 mL/min (90-120)
--- NOTE | 2016-08-12 07:00 | NUR ---
PT WAS RECEIVED AT THE BEGINNING OF THIS SHIFT IN BED WITH EYES OPEN. NO SIGNS OF ANY DISCOMFORT OR DISTRESS. VITAL SIGNS WNL. NO VERBAL COMPLAINTS OR CONCERNS AT THIS TIME. CALL LIGHT IN REACH. WILL BE MONITORING HER AND ASSISTING PRN WITH ADL'S.
[2016-08-12 07:55] VITALS: BP 160/80
--- NOTE | 2016-08-12 12:10 | NUR ---
Nutrition Monitoring and Eval: Chart reviewed. Pt is eating 97% meal avg on a diabetic mechanical soft diet. +BM. Labs and meds reviewed. Pt remains at low nutritional risk. RD will continue to monitor pt progress per policy.
--- NOTE | 2016-08-12 17:13 | NUR ---
PT HAS HAD AN UNEVENTFUL DAY TODAY. NO SIGNS OF ANY DISCOMFORT OR DISTRESS. BLOOD SUGAR LEVELS HAVE BEEN MONITORED AND BEEN RUNNING GOOD. NO INSULIN REQUIRED TODAY. MINIMAL ASSIST GIVEN. CALL LIGHT IN REACH.
[2016-08-12 19:25] VITALS: BP 154/72
--- NOTE | 2016-08-12 20:27 | NUR ---
PT REQUESTED A SANDWICH AND DIET NORTHWAY SODA. PT SATES DENIES ANY PAIN. PROVIDED SANDWICH AND DIET NORTHWAY SODA. PT NEEDED MIN ASSIST TO TRANSFER FROM LYING TO SITTING POSITION IN BED.
--- NOTE | 2016-08-13 02:10 | NUR ---
PT RESTING QUIETLY, NO S/S OF ACUTE DISTRESS. EYES CLOSED.
--- NOTE | 2016-08-13 07:06 | NUR ---
ASSISTED TO BATHROOM, SOFT STOOL, NEEDED REMINDER TO FINISH DEFECATION ON TOILET.
--- NOTE | 2016-08-13 08:15 | NUR ---
PT RESTING IN BED WITH EYES OPEN CALL LIGHT IN REACH WILL MONITER
[2016-08-13 09:28] VITALS: BP 183/79
--- NOTE | 2016-08-13 11:00 | NUR ---
SITTING UP IN VISITING WITH ROOM MATE.CL IN REACH.
--- NOTE | 2016-08-13 15:04 | NUR ---
PT RESTING IN BED WITH EYES OPEN WATCHING TV CALL LIGHT IN REACH WILL MONITER
--- NOTE | 2016-08-13 18:06 | NUR ---
PT RESTING IN BED WITH EYES OPEN CALL LIGHT IN REACH WILL MONITER
--- NOTE | 2016-08-13 19:27 | NUR ---
RESTING IN BED DENIES ANY NEEDS.
[2016-08-13 19:28] VITALS: BP 197/82
--- NOTE | 2016-08-14 01:30 | NUR ---
woke pt to go void in toilet, incontinent of large amount of urine.
--- NOTE | 2016-08-14 07:35 | NUR ---
assisted patient with shower,
--- NOTE | 2016-08-14 08:00 | NUR ---
PT RESTING IN BED WITH EYES OPEN CALL LIGHT IN REACH WILL MONITER
[2016-08-14 08:18] VITALS: BP 149/75
--- NOTE | 2016-08-14 15:23 | NUR ---
SITTING UP IN WC.CL IN REACH.
--- NOTE | 2016-08-14 15:53 | NUR ---
PT RESTING IN BED WITH EYES OPEN CALL LIGHT IN REACH WILL MONITER
--- NOTE | 2016-08-14 19:55 | NUR ---
PT. IN BED WITH HOB UP SLIGHTLY AND IS WATCHING TV. ASSESSMENT COMPLETED. NO VOICED NEEDS AND HER CALL LIGHT IS WITHIN REACH.
[2016-08-14 20:30] VITALS: BP 162/86
--- NOTE | 2016-08-14 23:24 | NUR ---
PT. IN BED WITH HOB UP FOR COMFORT WITH EYES CLOSED AND RESP. DEEP AND EVEN. CALL LIGHT WITHIN REACH.
--- NOTE | 2016-08-15 03:12 | NUR ---
PT. IN BED WITH HOB UP FOR COMFORT WITH EYES CLOSED AND RESP. DEEP AND EVEN. CALL LIGHT WITHIN REACH.
--- NOTE | 2016-08-15 07:48 | NUR ---
PT UP EATING BREAKFAST, DENIES NEEDS.
[2016-08-15 07:49] VITALS: BP 146/74
[2016-08-15] MEDS ORDERED: PLAVIX75 MG PO (09:36)
[2016-08-15] MEDS ORDERED: LIPITOR20 MG PO (09:37)
[2016-08-15] MEDS ORDERED: BAYER CHEWABLE81 MG PO (09:38)
[2016-08-15] MEDS ORDERED: PROTONIX40 MG PO (09:39)
--- NOTE | 2016-08-15 10:01 | NUR ---
PT DISCHARGED UPSTAIRS TO ACUTE CARE. PT TRANSFERRED VIA ACCOMPANIED BY HOSPITAL STAFF. PT TOLERATED WELL. REPORT CALLED TO SILAS ON MED II.
--- NOTE | 2016-08-15 10:12 | NUR ---
PATIENT DISCHARGED FROM REHAB AND ADMITTED TO ACUTE FLOOR DUE TO PENDING SURGERY PER DR. RAZO
== END 2016-08-15 10:02 | disposition short-term general hospital (02) | DRG 57 ==
LOC: D.REHAB 19:09
PROVIDERS: ADMIT Emergency Medicine
DX: I69.354 Hemiplegia and hemiparesis following cerebral infarction affecting left non-dominant side (principal); N39.0 Urinary tract infection, site not specified; F79 Unspecified intellectual disabilities; I69.328 Other speech and language deficits following cerebral infarction; E11.9 Type 2 diabetes mellitus without complications; D72.829 Elevated white blood cell count, unspecified; R53.83 Other fatigue; R41.82 Altered mental status, unspecified; I65.29 Occlusion and stenosis of unspecified carotid artery; R13.12 Dysphagia, oropharyngeal phase

== ENCOUNTER 2016-08-15 10:25 | Inpatient (IN) | payer MEDICARE ==
[~2016-08-15] VITALS: Ht 162.6 cm; Wt 93.4 kg
[~2016-08-15 10:25] MED LIST changes: +BAYER CHEWABLE81 MG PO
[2016-08-15 10:37] VITALS: BP 149/84; BMI 32.8
--- NOTE | 2016-08-15 10:53 | NUR ---
ARRIVIED FROM REHAB. PATIENT KNOWS HER BIRTHDATE BUT NOT ORIENTED TO PLACE, SITUATION. DOES RECOGNIZE TV SHOW CURRENTLY BROADCASTING. CAN STAND TO WEIGH WTIH ASSITANCE. WEIGHT IS 190. ECHO BEING DONE AT PRESENT.
[2016-08-15 11:20] LABS: BASOPHILS 0.4 % (0-2); EOSINOPHILS 5.5 % (0-7); HEMATOCRIT 44.6 % (36.0-48.0); HEMOGLOBIN 14.7 g/dL (12-16); IMMATURE GRANULOCYTES 0.2 % (0-5); LYMPHOCYTES 18.9 % (15-50); MCH 27.3 pg (26.0-34.0); MCV 82.7 fL (80.0-100.0); MEAN PLATELET VOLUME 11.8 fL (7.4-10.4); PLATELET COUNT 338 10x3/uL (130-400); RBC 5.39 10x6/uL (4.00-5.40); RDW 14.6 % (11.5-14.5); WBC 14.1 10x3/uL (4.8-10.8)
[2016-08-15 11:33] LABS: INR 0.97 (0.85-1.17); PROTIME 12.8 SECONDS (11.6-15.0)
[2016-08-15 11:47] LABS: ALBUMIN 3.4 g/dL (3.4-5.0); ALKALINE PHOSPHATASE 87 U/L (46-116); ALT (SGPT) 28 U/L (10-68); BILIRUBIN - TOTAL 0.42 mg/dL (0.2-1.3); CALC OSMOLALITY 284 mosm/kg (275-300); CALCIUM 9.4 mg/dL (8.5-10.1); CARBON DIOXIDE 26.3 mmol/L (21.0-32.0); CHLORIDE - SERUM 103 mmol/L (98-107); CREATININE - SERUM 0.7 mg/dL (0.6-1.3); POTASSIUM - SERUM 4.3 mmol/L (3.5-5.1); PROTEIN - SERUM 7.7 g/dL (6.4-8.2); SODIUM 141 mmol/L (136-145); UREA NITROGEN 13 mg/dL (7-18); eGFR NON AFRICAN AMERICAN 88 mL/min (90-120)
[2016-08-15 12:00] LABS: GLUCOSE 165 mg/dL (74-106)
[2016-08-15 12:17] VITALS: BP 149/84
[2016-08-15 16:28] VITALS: BP 157/76
--- NOTE | 2016-08-15 17:52 | NUR ---
WITHOUT CHANGES OR DISTRESS NOTED AT THIS TIME.
--- NOTE | 2016-08-15 19:00 | NUR ---
INITIAL ROUNDS MADE. PT SITTING UP IN BED WATCHING TV. CALL LIGHT IN REACH. VOICES NO NEEDS OR C/O AT THIS TIME. WILL CONT TO MONITOR.
[2016-08-15 21:46] VITALS: BP 143/88
[2016-08-16] VITALS (52 sets, daily range): BP systolic 116–171; BP diastolic 46–87
--- NOTE | 2016-08-16 00:37 | NUR ---
ATTEMPT AGAIN TO OBTAIN URINE SAMPLE ORDERED, PT REFUSES I/O CATH.
--- NOTE | 2016-08-16 04:55 | NUR ---
CARDIONEURO IN ROOM FOR EEG PREP
--- NOTE | 2016-08-16 05:30 | NUR ---
NITRO PLACED BILAT RADIALS
--- NOTE | 2016-08-16 05:45 | NUR ---
LINDA IN ROOM, PULSES MARKED. FRIDA MAK AND SCD ON
--- NOTE | 2016-08-16 06:00 | NUR ---
PRE OP MEDS GIVEN ORDERED. NS HUNG TO GRAVITY. PRE OP ANTIBIOTIC SENT WITH CHART.
--- NOTE | 2016-08-16 06:26 | NUR ---
TO OR VIA BED
--- NOTE | 2016-08-16 07:15 | NUR ---
PT WAS IN SURGERY WHEN I ARRIVED FOR MY SHIFT. RECEIVED IN REPORT THAT PT IS IN SURGERY AND THEN WILL BE GOING TO THE ICU.
--- NOTE | 2016-08-16 11:00 | NUR ---
AWAKENS TO SPEECH. ANSWERS APPROPRIATELY.
--- NOTE | 2016-08-16 15:00 | NUR ---
REASSESSED. VOICES NO CO AT TIME. AWAKES AND DRIFTS BACK TO SLEEP. VSS. NEURO CHECKS COMPLETE AND WNL.
--- NOTE | 2016-08-16 17:00 | NUR ---
EATING SUGAR FREE POPCICLE. NO CO AT TIME. ICE TO RCEA.
--- NOTE | 2016-08-16 19:20 | NUR ---
REPORT RECIEVED. ASSESSMENT COMPLET EPER FLOW SHEET. VSS. PT AWAKE ALERT ORIENTED X3. EYES PERRLA 3 MM BRISK. O2 VIA NC 4L O2 SAT 98% RR 12 RUL RML TL CLEAR BILAT LOWER LOBES DEMINISHED. IS ENCOURAGED 250 MET PT HAS DIFFICULTY FOLLOWING INSTRUCTIONS. STRONG COUGH AND DEEP BREATHE. HEART S1S2 HR 97 NSR BP 138/52 VIA R RADIAL EXTREMETY PINK WARM WITH GOOD SENSATION WRIST PROTECTOR ON. R SUBCLAVIAN CVL PATENT CDI PLASMALYTE AT 30CC/HR CLEVIPREX AT 30CC/HR OR 15MG/HR. ZINACEF AT 11.8 ML/HR. R NECK INCISION SITE CDI AUGUSTINE PATENT COMPRESSED SERO/SANG DRAINAGE NOTED. ICE PACK APPLIED. DENIES PAIN OR NEEDS. BS ACTIVE X4. ABD SOFT NON TENDER. JACKSON PATENT CHRISTIE URINE NOTED. BILAT KARTHIK'S SCD'S ON REMOVED SKIN ASSESSMENT COMPLETE NO NEW FINDINGS. SKIN CDI. BILAT PEDAL PULSES PALP +2. TRACE EDEMA NOTED BILAT LOWER EXTERMETIES, ELEVATED ON PILLOWS. RESTING COMFORTABLY. VSS WILL CONTINUE TO MONITOR.
--- NOTE | 2016-08-16 21:04 | NUR ---
2100 MEDS ADM WIHTOUT DIFFICULTY. VSS. NO NEW FINDINGS. DENIES NEEDS.
--- NOTE | 2016-08-16 22:40 | NUR ---
UP OOB TO BEDSIDE COMMODE. 500 CC CHRISTIE URINE NOTED. VSS. WILL CONTINUE TO MONITOR.
--- NOTE | 2016-08-16 23:00 | NUR ---
REASSESSMENT COMPLETE PER FLOW SHEET. VSS. NO NEW CHANGES. PT RESTING COMFORTABLY. WILL CONTINUE TO MONITOR.
[2016-08-17] VITALS (69 sets, daily range): BP systolic 96–160; BP diastolic 30–88; Ht 162.6 cm; Wt 93.4 kg
--- NOTE | 2016-08-17 01:20 | NUR ---
ASSISTED UP TO BEDSIDE COMMODE. 400 CC CHRISTIE URINE NOTED.
--- NOTE | 2016-08-17 01:24 | NUR ---
VSS. NO NEW FINDINGS. PT SLEEPING COMFORTABLY. WILL CONTINUE TO MONITOR.
--- NOTE | 2016-08-17 03:42 | NUR ---
REASSESSMENT COMPLETE PER FLOW SHEET. VSS NO NEW CHANGES. PT SLEEPING COMFORTABLY. ICE PACK REAPPLIED, MINIMAL SWELLING NOTED AT SITE R NECK DRSG CDI AUGUSTINE PATENT SEROSANG DRAINAGE NOTED. WILL CONTINUE TO MONITOR.
--- NOTE | 2016-08-17 03:44 | NUR ---
REASSESSMENT COMPLETE PER FLOW SHEET. VSS. NO NEW CHANGES PT DENIES CP OR NEEDS AT THIS TIME. WILL CONTINUE TO MONITOR.
[2016-08-17 05:50] LABS: BASOPHILS 0.3 % (0-2); EOSINOPHILS 1.6 % (0-7); HEMATOCRIT 39.8 % (36.0-48.0); IMMATURE GRANULOCYTES 0.3 % (0-5); LYMPHOCYTES 10.3 % (15-50); MCH 27.1 pg (26.0-34.0); MCHC 32.7 g/dL (31.0-37.0); MCV 83.1 fL (80.0-100.0); MONOCYTES 10.4 % (2-11); NEUTROPHILS 77.1 % (40-80); PLATELET COUNT 344 10x3/uL (130-400); RBC 4.79 10x6/uL (4.00-5.40); RDW 14.5 % (11.5-14.5); WBC 17.3 10x3/uL (4.8-10.8)
[2016-08-17 06:09] LABS: CALCIUM 7.9 mg/dL (8.5-10.1); CARBON DIOXIDE 25.4 mmol/L (21.0-32.0); CHLORIDE - SERUM 103 mmol/L (98-107); CREATININE - SERUM 0.7 mg/dL (0.6-1.3); SODIUM 137 mmol/L (136-145); eGFR NON AFRICAN AMERICAN 88 mL/min (90-120)
[2016-08-17 06:22] LABS: CALC OSMOLALITY 282 mosm/kg (275-300); GLUCOSE 221 mg/dL (74-106); UREA NITROGEN 18 mg/dL (7-18)
--- NOTE | 2016-08-17 09:25 | NUR ---
0700 AM ASSESSMENT DOCUMENTED PER FLOWSHEET. PATIENT SLEEPING. ALL VITALS REMAIN WNL. 0900 R RADIAL A LINE REMOVED, PRESSURE HELD. BP CUFF APPLIED TO LEFT ARM. WILL CONTINUE WITH Q15MNS VITALS. ALL AM MEDS GIVEN PER MAY.
--- NOTE | 2016-08-17 09:41 | NUR ---
JACKSON CATH D/C WITH TIP INTACT.
--- NOTE | 2016-08-17 10:00 | NUR ---
UP TO BEDSIDE CHAIR, TOTAL ASSIST BY PHYSICAL THERAPY.
--- NOTE | 2016-08-17 10:08 | NUR ---
* Is the patient Alert and Oriented? Yes 0 * How many steps to enter\exit or inside your home? 0 0 * Preadmission Environment [facility] 0 * ADLs Partial Dependent 0 * Partial ADLs (Assistance needed) Bathing Dressing Medication Management Transfers 0 * Equipment Hospital Bed Shower Chair Wheelchair 0 * List name and contact numbers for known caregivers / representatives who currently or will assist patient after discharge: Sister Hugo Woodward [phone] 0 * Additional services required to return to the preadmission environment? Yes 0 * Can the patient safely return to the preadmission environment? Yes 0 * Has this patient been hospitalized within the prior 30 days at any hospital? No 08/17/2016 10:09 DCP: Discharge Planning Patient Name: JEREMY PUCKETT Admission Status: Elective Accout number: [id number] Admission Date: 08-15-2016 : 1945 Admission Diagnosis: Attending: ESTEBAN Current LOS: 2 Anticipated DC Date: 08-18-2016 Planned Disposition: [facility] Facility Primary Insurance: MEDICARE A & B Discharge Planning Comments: CM met with patient to assess dc plans/needs. Patient states she is a long time resident of [facility]. At pa, she plans to return. Call placed to [facility] to confirm above. They state patient uses a wheelchair at the facility & requires assistance for transfers, toileting, & bathing. At pa, they plan to admit her to a long-term bed. Anticipate DC 1-2 days. CM will follow. Financial Management: Candice Farooq
--- NOTE | 2016-08-17 14:17 | NUR ---
1300 CLEVIPREX GTT D/C. WILL MONITOR SBP CLOSELY.
--- NOTE | 2016-08-17 14:28 | NUR ---
1215 BACK TO BED WITH ASSIST FROM PRIMITIVO RUIZ. ALL VITALS REMAIN WNL. 1428 SISTER AT BEDSIDE TO VISIT.
--- NOTE | 2016-08-17 19:42 | NUR ---
REPORT RECIEVED. ASSESSMENT COMPLETE PER FLOW SHEET. PT AWAKE ALERT ORIENTED X3 O2 VIA NC O2 SAT 100% RR 16 NON LABORED RUL RML TL CLEAR BILAT LOWER LOBES DEMINISHED. HEART S1S2 HR 103 SINUS TACK. BP 160/88 VIA L ARM BP CUFF. REPOSISIONED ON R ARM. BP 158/87. CLEVIPREX RESTARTED AT 4MCG/KG/MIN WILL REASSESS. R NECK INCISION SITE DRSG CDI L SUBCLAVIAN CVL PATENT DRSG CDI. BILAT RADIAL PEDAL PULSES PALP +2. DENIES PAIN OR NEEDS. BP REASSESSED 139/68 NEEDS MET. WILL CONTINUE TO MONITOR.
--- NOTE | 2016-08-17 21:16 | NUR ---
VSS NO NEW CHANGES. 2100 MEDS ADM WITHOUT DIFFICULTY. VSS. WILL CONTINUE TO MONITOR
--- NOTE | 2016-08-17 22:16 | NUR ---
PT INCONTENENT OF URINE X1. COMPLETE BB LINEN CHANGE ADM. BRIEF APPLIED. DENIES FURTHER NEEDS. WILL CONTINUE TO MONITOR.
--- NOTE | 2016-08-17 23:12 | NUR ---
REASSESSMENT COMPELTE PER FLOW SHEET. VSS. NO NEW CHANGES. PT SLEEPIGN COMFORTABLY. WILL CONTINUE TO MONITOR.
[2016-08-18] VITALS (33 sets, daily range): BP systolic 117–148; BP diastolic 52–91
--- NOTE | 2016-08-18 01:35 | NUR ---
PT SLEEPING COMFORTABLY. VSS. DENEIS NEEDS OR PAIN. WILL CONTINUE TO MONITOR.
--- NOTE | 2016-08-18 03:04 | NUR ---
REASSESSMENT COMPLETE PER FLOW SHEET. VSS. NO NEW CHANGES AT THIS TIME. WILL CONTINUE TO MONITOR.
[2016-08-18 06:25] LABS: BASOPHILS 0.4 % (0-2); EOSINOPHILS 3.2 % (0-7); HEMATOCRIT 39.4 % (36.0-48.0); HEMOGLOBIN 12.7 g/dL (12-16); IMMATURE GRANULOCYTES 0.4 % (0-5); LYMPHOCYTES 15.9 % (15-50); MCHC 32.2 g/dL (31.0-37.0); MCV 83.8 fL (80.0-100.0); MEAN PLATELET VOLUME 11.8 fL (7.4-10.4); MONOCYTES 11.7 % (2-11); NEUTROPHILS 68.4 % (40-80); PLATELET COUNT 302 10x3/uL (130-400); RDW 14.3 % (11.5-14.5); WBC 13.6 10x3/uL (4.8-10.8)
[2016-08-18 06:44] LABS: ALBUMIN 2.6 g/dL (3.4-5.0); ALKALINE PHOSPHATASE 68 U/L (46-116); ALT (SGPT) 20 U/L (10-68); CALCIUM 8.2 mg/dL (8.5-10.1); CARBON DIOXIDE 28.9 mmol/L (21.0-32.0); CHLORIDE - SERUM 101 mmol/L (98-107); GLUCOSE 233 mg/dL (74-106); POTASSIUM - SERUM 3.9 mmol/L (3.5-5.1); PROTEIN - SERUM 6.6 g/dL (6.4-8.2); SODIUM 137 mmol/L (136-145)
[2016-08-18 06:49] LABS: CALC OSMOLALITY 279 mosm/kg (275-300); CREATININE - SERUM 0.5 mg/dL (0.6-1.3); UREA NITROGEN 11 mg/dL (7-18); eGFR NON AFRICAN AMERICAN > 90 mL/min (90-120)
--- NOTE | 2016-08-18 10:21 | NUR ---
0700 AM REPORT RECEIVED FROM CHRISTOFER ADAN. PATIENT IN BED, SLEEPING. NC IN PLACE. ALL VITALS REMAIN WNL. 0815 PHYSICAL THERAPY ASSISTED PATIENT TO BEDSIDE CHAIR. SIPPING IN CHAIR EATING DINNER.
--- NOTE | 2016-08-18 12:54 | NUR ---
08/18/2016 12:48 DCP: Discharge Planning Patient Name: JEREYM PUCKETT Encounter No: [id number] : 1945 Primary Insurance: MEDICARE A & B Anticipated DC Date: 08-18-2016 Planned Disposition: Residential Facility External Planned Provider: [facility] DCP follow-up note: DC order rec'd. Patient in agreement with discharge plan. Updated orders and requested information faxed to SNF. Patient notified of anticipated dc time. Patient will be transported by ambulance due to mechanical issues with facility transport van. Nursing to call report to [facility] @ [phone]. Patient will be transferring to a [facility] bed. Candice Farooq
--- NOTE | 2016-08-18 13:25 | NUR ---
CALLED CHRISTOFER ZIMMERMAN AT [facility] FOR REPORT.
--- NOTE | 2016-08-18 13:35 | NUR ---
L SUBCLAVIAN CVL REMOVED WITH TIP INTACT. STITCHES REMOVED X 3. PRESSURE HELD, PRESSURE DRESSING APPLIED. WILL MONITOR FOR BLEEDING.
--- NOTE | 2016-08-18 14:31 | NUR ---
BATH COMPLETED AT BEDSIDE, HAIR WASHED THIS AM. GOWN CHANGED AND ADULT BRIEF APPLIED. ALL BELONGINGS PACKED. PATIENT DRESSED IN HOSPITAL GOWN DUE TO NO PERSONAL CLOTHING. NC 2L REMAINS IN PLACE FOR TRANSPORT. AWAITING TRANSPORT FROM [place].
--- NOTE | 2016-08-18 14:46 | NUR ---
D/C WITH [facility] [employer] VIA [facility]RETCHER.
--- NOTE | 2016-08-20 13:32 | HP ---
PATIENT: JEREMY PUCKETT MEDICAL RECORD: [id number] ACCOUNT: [id number] LOCATION:[facility] : [birth year] ADMISSION DATE: 08/15/16 HISTORY AND PHYSICAL EXAMINATION History of Present Illness: Patient admitted to the hospital with right hemispheric stroke symptoms of left arm left leg weakness as well as difficulty talking. She is left-handed. She underwent a CT scan demonstrated an occipital stroke and no hemorrhage. Carotid Doppler studies show bilateral carotid disease as well as the CT angiogram. The right carotid is severely stenotic and is obviously the source of her stroke. Neurological Hx: NONE EENT Hx: GLASSES Endocrine Hx: DIABETES Cardiovascular Hx: NONE Respiratory Hx: NONE Cancer Hx: NONE Immune Disorders: NONE Gastrointestinal Hx: ACID REFLUX Psychosocial Hx: NONE Surgery Hx: HYSTERECTOMY, 1979 Allergies: Coded Allergies: No Known Allergies (08/01/16) Medications Reported Medications Insulin Glargine,Hum.rec.anlog (LANTUS SOLOSTAR PEN) 54 UNITS SC QHS aMLOdipine Besylate (NORVASC) 5 MG PO DAILY metFORMIN (Glucophage) 750 MG PO BID Lisinopril (Prinivil) 20 MG PO BID Polyethylene Glycol 3350 (Miralax) 17 GM PO DAILYP PRN CONSTIPATION Insulin Asp Prt/Insulin Aspart (NovoLOG Mix 70/30) 18 UNITS SC QAM Insulin Regular (HumuLIN R) 1 LOWSS SC ACHS Sennosides/Docusate 8.6/50 MG (Senna Plus) 2 TAB PO BIDPRN PRN CONSTIPATION Family Hx Parent: NONE KNOWN Sibling: NONE KNOWN Natural Child: NONE KNOWN Social History Smoking Status: NEVER TOBACCO USER Alcohol: No Recreational Drug Use: No SUBJECTIVE Chief Complaint: mental status change and left-sided weakness Review of Systems GEN weakness (left arm and leg), neg fatigue VICE PRESIDENT QUALITY neg headache, neg dizziness, neg numbness, neg mental status change CV neg chest pain, neg palpitations, neg orthopnea, neg LE edema ID chills HISTORY AND PHYSICAL [id number] JEREMY PUCKETT GI neg nausea, neg emesis, neg abdominal pain, neg diarrhea, neg constipation dysuria, neg acute kidney disease, neg chronic kidney dx, neg dialysis HEME neg epistaxis, neg hemoptysis, neg hematuria, neg GI bleeding, neg melena ENDO neg thirsty, neg sweaty, neg tremor Skin Warm, Dry Pulm neg SOB, neg cough, neg sputums, neg pleurisy Musc/skel neg pain, neg misalignment, neg stiffness, neg joint swelling, neg decreased ROM, neg functional deficit, neg arthritis Physical Exam General Appearance: alert, awake, conversant, face symetrical, mental status normal, oriented, no acute distress HEENT: mucus membranes moist Neck: no JVD Cardiovascular Assessment: normal cap refill, regular rate and rhythm, no ectopy Resp Assessment: no acute distress, normal breath sounds, no wheezes, no rhonchi Abdomen/GI Assessment: soft, nontender, no distention Neur/VICE PRESIDENT QUALITY: alert, oriented times 4, speech clear, no gross deficits Extremity Assessment: normal inspection, neurovascular intact Skin: Warm, Dry NUTRITION: Diet Problem List 1. Carotid artery stenosis with cerebral infarction (Acute) 2. CVA (cerebral vascular accident) (Acute) 3. Type 2 diabetes mellitus with hyperglycemia (Acute) 4. Leukocytosis (Acute) 5. UTI (urinary tract infection) (Acute) Plan Plavix 75 mg in the We'll allow her to recover from stroke which began over 10 days ago. Will admit for carotid Doppler and subsequent endarterectomy. I have discussed her disease process with her and her family in detail as well as the alternative methods of treatment. We discussed right carotid endarterectomy and the expected benefits and risk which included bleeding, infection, stroke, and the imponderables. They understand all the above and agreed with above plan. ARIADNA RAZO MD at 1332 CC: [id number] DICTATION DATE: 08/03/16 1257 SAND TECHNICIAN: VERNELL 08/15/16 1245 DIS IN 08/18/16 [facility] [address] [place] [address]
--- NOTE | 2016-08-20 13:32 | OP ---
PATIENT NAME: JEREMY PUCKETT MEDICAL RECORD: [id number] :[birth year] [facility] ADMISSION DATE:08/15/16 SURGEON: LJ RAZO MD DATE OF OPERATION: 08/16/2016 SURGEON: Lj Razo MD. ANESTHESIA: General, Dr. Hinson. OPERATIONS PERFORMED: Right carotid endarterectomy with patch angioplasty. PREOPERATIVE DIAGNOSIS: Severe bilateral carotid stenosis. POSTOPERATIVE DIAGNOSIS: Severe bilateral carotid stenosis. INDICATION FOR OPERATION: Severe bilateral carotid stenosis. FINDINGS AT OPERATION: Severe right internal carotid artery stenosis. There were no EEG changes with clamping or unclamping of the carotid artery. The area of stenosis is greater than 95%. ESTIMATED BLOOD LOSS: Less than 100 mL. DESCRIPTION OF PROCEDURE: After informed consent, adequate preoperative medication and evaluation, the patient was brought to the operating room, placed on the table in the supine position. After induction of general endotracheal anesthesia and application of appropriate monitoring devices, the right neck and chest prepped and draped in a sterile field, utilizing Betadine scrub, alcohol, and Betadine solution. A Betadine-impregnated drape was also used. An oblique incision was made in the skin crease. Dissection carried down the fascia. Hemostasis maintained with electrocautery. Facial vein was identified and divided. Utilizing sharp dissection, the common carotid, internal and external carotid arteries were dissected free from surrounding structures, protecting the neurological structures. The patient was given a calculated dose of heparin. After 3 minutes, clamps were applied. After 2 minutes, no EEG changes. The arteriotomy was made and extended with Jules scissors. Artery underwent endarterectomy sharply. Artery underwent extensive debridement and irrigation. Utilizing a vascular patch CorMatrix and a 7-0 Prolene suture, the arteriotomy was closed with patch angioplasty technique. All maneuvers to remove trapped air were performed. The clamps were removed sequentially. There were no EEG changes. The patient was given a calculated dose of protamine to reverse the heparin. Hemostasis was assured. A #7 Alok-Alves drain was left in the depths of wound and brought through the base of the neck. Neck was again irrigated. Instrument count and sponge count were correct times 2. Neck was closed in layers utilizing 3-0 Vicryl on the platysma, 5-0 subcuticular Monocryl on the skin. Sterile dressings were applied. The patient tolerated the procedure well and transferred to cardiovascular recovery in satisfactory condition. TRANSINT:[id number] Voice Confirmation ID: [id number] DOCUMENT ID: [id number] OPERATIVE REPORT [id number] JEREMY PUCKETT EDWARD MD at 1332 CC: [id number] DICTATION DATE: 08/16/16 1049 DESIZING MACHINE OPERATOR HEAD END: 08/16/16 2142 DIS IN 08/18/16 [place] [address]
== END 2016-08-18 14:46 | DRG 38 ==
LOC: D.M2 10:25 → D.CVICU 10:25 → D.SDCHOLD 12:18 → D.M2 12:37 → D.CVICU 08-16 07:54
PROVIDERS: Family Medicine; ADMIT Internal Medicine Cardiovascular Disease
PROC: 03CK0ZZ Extirpation of Matter from Right Internal Carotid Artery, Open Approach (ICD-10-PCS; principal; 2016-08-15)
PROC: 03UK0JZ Supplement Right Internal Carotid Artery with Synthetic Substitute, Open Approach (ICD-10-PCS; 2016-08-15)
DX: I65.23 Occlusion and stenosis of bilateral carotid arteries (principal); N39.0 Urinary tract infection, site not specified; K21.9 Gastro-esophageal reflux disease without esophagitis; I10 Essential (primary) hypertension; E11.65 Type 2 diabetes mellitus with hyperglycemia; Z79.4 Long term (current) use of insulin; F79 Unspecified intellectual disabilities; I69.398 Other sequelae of cerebral infarction; H53.9 Unspecified visual disturbance

== ENCOUNTER 2016-11-07 10:16 | Inpatient (IN) | payer MEDICARE ==
[~2016-11-07] VITALS: Ht 162.6 cm; Wt 84.5 kg
--- NOTE | ~2016-11-07 | CN ---
PATIENT NAME:JEREYM MAYORGA MEDICAL RECORD: [id number] : [birth year] LOCATION:[facility] ADMIT DATE: 11/07/16 ACCOUNT: [id number] CONSULTING PHYSICIAN: SOFIA KIRKPATRICK MD REFERRING PHYSICIAN: LJ RAZO MD DATE OF CONSULTATION: 11/14/2016 CONSULT REQUESTING PHYSICIAN: Dr. Lj Razo. REASON FOR CONSULTATION: Status post cardiopulmonary arrest, vent management. HISTORY OF PRESENT ILLNESS: Ms. Mayorga is a 71-year-old female who underwent left carotid endarterectomy was doing very well, nearly back to baseline. The patient was supposed to be transferred to the halfway today. While she was eating, most likely she choked on food and the patient quit breathing and code blue was called and the patient was orally intubated. Now, the history was taken by talking to the nursing staff as well as reviewing the patient's note. REVIEW OF SYSTEMS: The detail is not obtainable. PAST MEDICAL HISTORY: 1. Chronic mental retardation. 2. Diabetes mellitus. 3. Hysterectomy. 4. Hypertension. 5. Type 2 diabetes mellitus. PAST SURGICAL HISTORY: Hysterectomy in 1979, now she is status post left carotid endarterectomy. ALLERGIES: No known drug allergies. MEDICATIONS: On [employer] was reviewed. PERSONAL AND SOCIAL HISTORY: The patient is a nonsmoker, nondrinker. FAMILY HISTORY: Unknown. PHYSICAL EXAMINATION: GENERAL: Now, the patient is orally intubated and sedated. VITAL SIGNS: The blood pressure is 106/53, pulse is 88, respirations 12, temperature is 98.6, SpO2 of 91%-96% on assist control mechanical ventilation. HEENT: Conjunctivae are pink. Sclerae nonicteric. NECK: Supple. No JVD. CHEST: There is no wheeze, no rales. HEART: Rate and rhythm regular, normal sound, no murmur. ABDOMEN: Soft. Bowel sounds present. No hepatosplenomegaly. RECTAL: Deferred. EXTREMITIES: No cyanosis, no clubbing. There is no pedal edema. SKIN: Warm, normal turgor. There is an incision at the left side of the neck. CENTRAL NERVOUS SYSTEM: The patient is orally intubated and sedated. LABORATORY DATA: CBC: WBC yesterday is 11.2, hemoglobin 11.4, hematocrit 36.6, platelet count 383. ABG today: The pH is 7.51, pCO2 is 41.3, pO2 is 468, CONSULT REPORT [id number] JEREMY MAYORGA bicarbonate is 33. IMPRESSION: 1. [id number]-[id number] respiratory failure secondary to respiratory arrest, possible aspiration of food. 2. Status post left carotid endarterectomy. 3. Hypertension. 4. Type 2 diabetes mellitus. 5. Leukocytosis. 6. History of chronic mental status changes. 7. History of chronic respiratory failure. RECOMMENDATION: 1. We will continue mechanical ventilation, adjust the setting. 2. Follow up labs and chest radiograph. 3. Albuterol and ipratropium nebulizer. I will change the antibiotic to Zosyn to cover for anaerobes and Gram-negative rods. 4. DVT and GI stress ulcer prevention. 5. Follow up labs and chest radiograph. Dr. Razo, thank you for involving me in the care of Ms. Mayorga. TRANSINT:[id number] Voice Confirmation ID: [id number] DOCUMENT ID: [id number] SOFIA KIRKPATRICK MD CC: JA KAM MD [id number] DICTATION DATE: 11/14/16 1349 PERFORMANCE REPORTER: 11/14/16 1621 ADM IN [facility] [address] [place] [address]
[~2016-11-07 10:16] MED LIST changes: +GLUCOPHAGE XR750 MG PO; -GLUCOPHAGE500 MG PO
[2016-11-07 11:29] VITALS: BP 198/91; BMI 33.9
--- NOTE | 2016-11-07 11:45 | NUR ---
PT ARRIVED VIA FROM [facility] FOR OR IN THE AM. PT IS ORIENTED TO SELF BUT NOT SITUATION. SISTER AT BEDSIDE AND GAVE HISTORY. PT IS WATCHING TV IN BED. MONITOR SHOWS SR @ 83. WILL CONTINUE TO MONITOR.
[2016-11-07 12:00] VITALS: BP 168/75
[2016-11-07 12:18] LABS: HEMATOCRIT 38.6 % (36.0-48.0); HEMOGLOBIN 12.5 g/dL (12-16); MCH 26.1 pg (26.0-34.0); MCHC 32.4 g/dL (31.0-37.0); MCV 80.6 fL (80.0-100.0); MEAN PLATELET VOLUME 12.1 fL (7.4-10.4); RBC 4.79 10x6/uL (4.00-5.40); RDW 15.2 % (11.5-14.5)
[2016-11-07 12:25] LABS: ALBUMIN 3.1 g/dL (3.4-5.0); ALKALINE PHOSPHATASE 71 U/L (46-116); ALT (SGPT) 20 U/L (10-68); CALC OSMOLALITY 289 mosm/kg (275-300); CALCIUM 8.7 mg/dL (8.5-10.1); CARBON DIOXIDE 28.9 mmol/L (21.0-32.0); CHLORIDE - SERUM 105 mmol/L (98-107); CREATININE - SERUM 0.7 mg/dL (0.6-1.3); POTASSIUM - SERUM 3.5 mmol/L (3.5-5.1); PROTEIN - SERUM 6.7 g/dL (6.4-8.2); SODIUM 144 mmol/L (136-145); UREA NITROGEN 10 mg/dL (7-18); eGFR NON AFRICAN AMERICAN 88 mL/min (90-120)
[2016-11-07 12:27] LABS: GLUCOSE 175 mg/dL (74-106)
[2016-11-07 12:34] LABS: APTT 36.1 SECONDS (22.8-39.4); INR 1.03 (0.85-1.17); PROTIME 13.4 SECONDS (11.6-15.0)
[2016-11-07 16:00] VITALS: BP 191/76
--- NOTE | 2016-11-07 17:45 | NUR ---
WITHOUT CHANGES OR DISTRESS NOTED AT THIS TIME. DENIES NEEDS.
[2016-11-07 19:00] VITALS: BP 191/107
--- NOTE | 2016-11-07 19:21 | NUR ---
RECEIVED REPORT, WILL ASSUME CARE OF PT, PT LAYING QUIETLY, DENIES ANY NEEDS, BED IS LOW, SRX2, CALL LIGHT IN REACH, WILL CONTINUE PLAN OF CARE
--- NOTE | 2016-11-07 23:21 | NUR ---
ASSESSMENT COMPLETE, SEE FLOWSHEET, PT SLEEPING, BED IS LOW, SRX2, BED ALARM IS ON, CALL LIGHT IN REACH, WILL CONTINUE PLAN OF CARE
[2016-11-08] VITALS (53 sets, daily range): BP systolic 95–201; BP diastolic 46–93
--- NOTE | 2016-11-08 00:27 | NUR ---
RECEIVED UA, TAKEN TO LAB
[2016-11-08 00:39] LABS: APPEARANCE HAZY (CLEAR); BILIRUBIN NEGATIVE (NEGATIVE); COLOR YELLOW (YELLOW); GLUCOSE NEGATIVE (NEGATIVE); KETONE NEGATIVE (NEGATIVE); LEUKOCYTE ESTERASE 2+ (NEGATIVE); NITRITE NEGATIVE (NEGATIVE); PROTEIN NEGATIVE (NEGATIVE); UROBILINOGEN NORMAL (NORMAL)
[2016-11-08 00:43] LABS: BACTERIA MANY /hpf (NONE SEEN); EPITHELIAL CELLS 0-5 /hpf (0-5); RED CELLS - URINE 0-5 /hpf (0-5)
--- NOTE | 2016-11-08 05:25 | NUR ---
PT CLIPPED/PREP FOR SURGERY VIA EXTERNAL RELATIONS DIRECTOR ROHAN, EEG WAITING TO PREP
--- NOTE | 2016-11-08 07:48 | NUR ---
ASSESSMENT DONE. DENIES NEEDS.
--- NOTE | 2016-11-08 12:14 | NUR ---
PT ARRIVED TO ROOM 1155 VIA BED. 10L NC. IV TO RIGHT SUBCLAVIAN WITH PLASMALYTE 100ML/HR AND NITROGLYCERIN AT 1.11MCG/KG/MIN. INVOS L74 R70. DRESSING TO LEFT NECK MARKED WITH DRAINAGE FROM OR. JUST BELOW AUGUSTINE DRESSING SHOWS CONTINUATION TO SEEP. AUGUSTINE DRAIN CONTAINS BLOODY DRAINAGE. PT BATHED WITH CLORHEXADINE WIPES AND NEW PAD PLACED UNDER HER. JACKSON CATHETER FUNCTIONING. TEMP READS 37.6 AT THIS TIME. TEDS AND SCDS IN PLACE. RIGHT RADIAL ART LINE IN USE. ART AND CVP LINES ZEROED. FAMILY HAS BEEN BY FOR VISIT. DR TADEO HAS BEEN BY. MADE AWARE OF UTI AND PUNGENT URINE SMELL.
--- NOTE | 2016-11-08 12:55 | NUR ---
PT PLACED ON 2L. RESPIRATORY THERAPIST ATTEMPTED INCENTIVE SPIROMETRY. PT TRIES TO SUCK IN, BUT DOES NOT ALWAYS FOLLOW COMMAND AND BLOWS INTO INSTEAD. BP CONTINUES TO DECREASE, NITRO CURRENTLY AT 0.37MCG/KG/MIN (10ML/HR) INVOS L70 R72
--- NOTE | 2016-11-08 13:20 | NUR ---
FLOOR UNIT HAS BEEN CALLED WHERE PATIENT WAS BEFORE GOING TO OR TO GET HER INSULINS. HAVE NOT YET RECEIVED THEM. PHARMACY CALLED AND ASKED TO SEND UP BOTTLE OF REGULAR INSULIN.
--- NOTE | 2016-11-08 15:36 | NUR ---
PT RESTING QUIETLY. FOLLOWS COMMANDS. NO VERBAL RESPONSES FROM PATIENT. NITRO STOPPED AND CLEVIPREX STARTED.
--- NOTE | 2016-11-08 15:44 | HP ---
PATIENT: JEREMY PUCKETT MEDICAL RECORD: [id number] ACCOUNT: [id number] LOCATION:[place] [address] : 47 ADMISSION DATE: 11/07/16 HISTORY AND PHYSICAL EXAMINATION JEREMY Tom (71yo, F) ID# [id number]. Date/Time10/27/2016 01:[id number] 1945[facility] Dept[facility] ClinicProviderLUIS RAZO MDInsuranceMed Primary: [place] (MEDICARE) Insurance # : [id number] Employer Name : DISABLED Med Secondary: [place]MED[place]ID) Insurance # : [id number] Employer Name : DISABLED Prescription: CMX - Member is eligible. Prescription: [employer] [employer] - Member is eligible. Chief Complaint None recorded. Vitals BP:162/86 sitting R arm 10/27/2016 01:13 pmBP Cuff Size:adult 10/27/2016 01:13 pmHR:96,REG 10/27/2016 01:14 pmHt:5 ft 4 in 10/27/2016 01:09 pmWt:200 lbs 10/27/2016 01:14 pmNotes:DOING WELL, HERE FOR SCHED SECOND SURGERY 10/27/2016 01:15 pmBMI:34.3 10/27/2016 01:14 pmAllergies Reviewed Allergies NKDAMedications Reviewed Medications amLODIPine 5 mg /01/17 filledCaremarkatorvastatin 20 mg ytnhnt65/01/17 filledCaremarkcefTRIAXone 1 gram solution for edqstbsgk45/18/17 filledCaremarkclopidogrel 75 mg rcxomx84/01/17 filledCaremarkglipiZIDE 5 mg /01/16 filledCaremarkLantus 100 unit/mL subcutaneous vtsniyta36/02/17 filledCaremarklevoFLOXacin 750 mg irxugo59/14/17 filledCaremarklidocaine 10 mg/mL (1 %) injection rhwczzoe55/18/17 filledCaremarklisinopril 20 mg iyqolm16/01/17 filledCaremarkmetFORMIN 500 mg zncboc35/30/16 filledCaremarkmetFORMIN ER 750 mg tablet,extended release 24 hr10/11/16 filledCaremarkmirtazapine 15 mg hhecju83/30/16 filledCaremarkNovoLOG Mix 70-30 100 unit/mL subcutaneous /22/16 filledCaremarkNystop 100,000 unit/gram topical xjaesi46/26/17 filledCaremarkpantoprazole 40 mg tablet,delayed zcbetoh85/01/17 filledCaremarkVaccines Reviewed Vaccines Some vaccines listed in Document: #[id number] could not be added to this patient's chart. Please review this document and add these vaccines to the patient's chart manually as needed. 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 HPI Cerebral Vascular Disease Reported by patient. Quality: PERIPHERAL VISION IS LIMITED EYE EXAM SHOWED SHE IS READING RIGHT TO LEFT INSTEAD OF LEFT TO RIGHT SINCE HER STROKE. Associated Symptoms: no headache; no nausea; no vomiting; no tinnitus; no difficulty speaking; no lethargy; no fever; no chills; no palpitations; no syncope; no loss of consciousness Post-Op Visit Reported by patient. Associated Symptoms: incision healing well; no fatigue; normal appetite; normal bowel function; no constipation; no nausea; no emesis; pain improving; no pain; no fever; no bleeding; no lower extremity edema/pain; no dysuria/urinary symptoms severe left internal carotid artery disease History of stroke ROS Patient reports exercise intolerance but reports no fever, no night sweats, no significant weight gain, and no significant weight loss. She reports vision change but reports no dry eyes and no irritation. She reports urinary loss of control and increased urinary frequency but reports no difficulty urinating and no hematuria. She reports muscle weakness, back pain, and swelling in the extremities but reports no muscle aches and no arthralgias/joint pain. She reports no difficulty hearing and no ear pain. She repor ts no frequent nosebleeds and no nose/sinus problems. She reports no sore throat, no bleeding gums, no snoring, no dry mouth, no mouth ulcers, no oral abnormalities, and no teeth problems. She reports no jugular vein distension and no swollen glands. She r eports no chest pain, no arm pain on exertion, no shortness of breath when walking, no shortness of breath when lying down, no palpitations, and no known heart murmur. She reports no cough, no wheezing, no shortness of breath, and no coughing up blood. Sh e reports no abdominal pain, no vomiting, normal appetite, no diarrhea, not vomiting blood, no nausea, and no constipation. She reports no abnormal mole, no jaundice, and no rashes. She reports no loss of consciousness, no weakness, no numbness, no seizure s , no dizziness, and no headaches. She reports no depression, no sleep disturbances, feeling safe in relationship, and no alcohol abuse. She reports no fatigue. She reports no swollen glands and no bruising. She reports no runny nose, no sinus pressure, no itching, no hives, and no frequent sneezing. ROS as noted in the HPI HISTORY AND PHYSICAL [id number] JEREMY PUCKETT Physical Exam Patient is a 71-year-old female. Constitutional: General Appearance healthy-appearing and obese. Level of Distress NAD. Ambulation ambulating normally and in wheelchair. Cardiovascular: Apical Impulse not displaced or no thrill. Heart Auscultation normal s1 and s2; no murmurs, rubs, or gallops; and RRR. Arterial Pulses no abdominal aorta bruits, femoral bruits, or popliteal bruits and 2+ bilateral, carotid 2+ bilateral, fe moral 2+ bilateral, popliteal 2+ bilateral, and dorsalis pedis 2+ bilateral. Edema no edema or varicosities. Lungs: Repiratory Effort no dyspnea. Percussion no hyperresonance or dullness or flatness. Auscultation no wheezing, rhonchi, or rales / crackles and breathing sounds normal, good air movement, and CTA except as noted. Abdomen: Bowl Sounds normal. Inspection and Palpation no tenderness, guarding, masses, or rebound tenderness and soft and non-distended. Liver non-tender and no hepatomegaly. Spleen non-tender and no splenomegaly. Hernia none palpable. Musculoskeletal System: Gait And Stance irregular gait and stance. Digits and Nails normal nails, no cyanosis, and abnormal nails. Joints, Bones, and Muscles limited ROM and abnormal strength. Neurologic: Cranial Nerves grossly intact. Reflexes DTRs 2+ bilaterally throughout. Sensation grossly intact. Lymph Nodes: Lymph Nodes no cervical LAD, supraclavicular LAD, axillary LAD, or inguinal LAD. Eyes: Lids and Conjunctivae no discharge or pallor and non-injected. Pupils PERRLA. Cornea grossly intact. EOM EOMI. Lens clear. Sclera non-icteric; bilateral field cuts. Neck: Neck no masses, enlarged lymph nodes, or carotid bruits and supple and trachea midline. Thyroid no enlargement or nodules and non-tender. Skin: Inspection and Palpation no rash, lesions, ulcers, jaundice, or abnormal nevi. right neck incision healing well Neurologic status baseline Left visual field cuts Assessment / Plan severe left internal carotid artery stenosis 1. Carotid artery stenosis - Bilateral I65.29: Occlusion and stenosis of unspecified carotid artery CAROTID STENOSIS: CARE INSTRUCTIONS Discussion Notes severe left internal carotid artery stenosis. The patient and her sister would like to proceed with left car otid endarterectomy. I have discussed her disease process with her in detail as well as the alternative methods of treatment. We discussed left carotid endarterectomy including the expected benefits and risk which included bleeding, infection, stroke, janay th, and the imponderables. She understands all of HISTORY AND PHYSICAL [id number] JEREMY PUCKETT the above and wishes to proceed with surgery schedule surgery for the week of the 07 of November left carotid endarterectomy ARIADNA RAZO MD at 1544 CC: [id number] DICTATION DATE: 10/27/16 1315 ARCHIVES SPECIALIST: VERNELL 11/03/16 1341 ADM IN [facility] [address] [place] [address]
--- NOTE | 2016-11-08 18:00 | NUR ---
DRESSING AT AUGUSTINE DRAIN CHANGED. SATURATED WITH BLOOD AND SEROUS FLUID. WAS SEEPING OUT OF TEGADERM AND ON TO PATIENT. THERE IS A CLOT AT INSERTION SITE. WAS NOT DISTURBED. SITE CLEANED WITH IODINE SWAB AND BIOPATCH PLACED AROUND ENTRY. GAUZE COVERED AND SECURED WITH TEGADERM.
--- NOTE | 2016-11-08 19:20 | NUR ---
REPORT REC'D AND CARE ASSUMED, REC'D PT ON O2 @ 2LITERS SITTING UP IN BED WATCHING TV, ORIENTED X 3, PT SLOW TO ANSWER QUESTIONS, LEFT NECK WITH EDEMA, DRSG CDI, ICE PACK TO SITE, LEFT UPPER CHEST AUGUSTINE DRAIN COMPRESSED WITH SANGUINOUS DRAINAGE, GAUZE DRSG WITH BLOODY DRAINAGE NOTED, BILAT SOCIAL MEDIA ANALYST EQUAL AND STRONG, TONGUE MIDLINE, ABD SOFT BS X 4, RIGHT RADIAL CARLOS WITH FLEXION BOARD IN USE CARLOS LEVELED ZEROED AND FLUSHED WITH RETURN OF APPROPRIATE WAVEFORM, CRITICORE JACKSON PATENT DRAINING CLOUDY YELLOW URINE WITH SEDIMENT, BILAT TEDS/SCDS INTACT AND ON, PT DENIES PAIN OR NEEDS, SR UP X 2, BED IN LOW POSITION, CALL LIGHT IN REACH.
--- NOTE | 2016-11-08 19:45 | NUR ---
PT HAVING DIFFICULTY USING REMOTE FOR TV FREQUENTLY HITS NURSE CALL LIGHT INSTEAD, PT ASSISTED TO FIND TV CHANNEL OF CHOICE, TITRATING CLEVIPREX FOR EFFECT. RDLSCL DRSG CDI WITH PLASMALYTE @ 3OCC/HR, ZINACEF @ 11.4CC/HR AND CLEVIPREX @ 20CC/HR 0R 10MG/HR.
--- NOTE | 2016-11-08 20:55 | NUR ---
EVENING MEDS GIVEN, FSBS 317, 8 UNITS REGULAR INSULIN GIVEN, PT DOZING, ICE PACK REFILLED TO PLACED TO NECK, WILL CONT TO MONITOR.
--- NOTE | 2016-11-08 21:30 | NUR ---
NO VISITORS IN AT THIS TIME, PT RESTING EYES CLOSED, RESP EVEN AND UNLABORED, WILL MONITOR FOR CHANGES.
--- NOTE | 2016-11-08 23:15 | NUR ---
REASSESSMENT COMPLETED, PT STATES " IT'S LEAKING" ICE PACK LEAKING PARTIAL LINEN CHANGE PROVIDED, LEFT UPPER CHEST AUGUSTINE DRAIN WITH BLOODY DRAINAGE NOTED DOWN PT'S CHEST FROM UNDER DRSG, PARTIAL CHOLRIHEXIDINE BATH PROVIDED, 4X4'S ADDED AND SMALL SAND BAG APPLIED, PT TOLERATED WELL.
[2016-11-09] VITALS (64 sets, daily range): BP systolic 93–140; BP diastolic 42–86
--- NOTE | 2016-11-09 | NUR ---
PT O2 SAT DECREASED TO 82% WHILE SLEEPING, PT AWAKENED AND DEEP BREATHING AND DONE, O2 SAT INCREASED TO 94%, WILL CONT TO MONITOR FOR CHANGES.
--- NOTE | 2016-11-09 01:00 | NUR ---
SAND BAG REMAINS, DRSG TO AUGUSTINE SITE WITH BLOODY DRAINAGE, TITRATING CLEVIPREX
--- NOTE | 2016-11-09 03:00 | NUR ---
NO CHANGES IN STATUS, CONT TO TITRATE CLEVIPREX TOLERATED, WILL MONITOR CLOSELY FOR CHANGES.
--- NOTE | 2016-11-09 05:30 | NUR ---
Howard JC AT BS, AUGUSTINE DRAIN REMOVED, 1CC XYLOCAINE WITH EPI INJECTED AT SITE, PRESSURE HELD FOR 5MINS, COVERED WITH 2X2'S AND TEGADERM, NO FURTHER BLEEDING NOTED, WILL CONT TO MONITOR FOR CHANGES.
--- NOTE | 2016-11-09 05:50 | NUR ---
CHLORAHEXIDINE BATH PROVIDED AND LINENS CHANGED, PT REPOSITIONED UP IN BED FOR COMFORT, HAIR COMBED, PT DENIES PAIN OR FURTHER NEEDS.
--- NOTE | 2016-11-09 06:15 | NUR ---
NO VISITORS IN AT THIS TIME.
--- NOTE | 2016-11-09 07:00 | NUR ---
Received report and assumed care of patient. Patient currently asleep, arouses easily, oriented x4. Left neck incision with dressing intact, incision site swelling noted. Dressing below from old AUGUSTINE insertion site, dressing CDI. Right subclavian CVL with plasmalyte, cleviprex, and zinacef infusing. Right radial yamilet with good wave form, insertion site CDI without redness. Criticore olvera draining cloudy urine. See shift assessment flowsheet for all findings.
--- NOTE | 2016-11-09 08:30 | NUR ---
Patient sitting up in bed with breakfast tray. Attempting to wean cleviprex
--- NOTE | 2016-11-09 09:10 | NUR ---
Patient has visitor at this time. Remains up in the chair.
--- NOTE | 2016-11-09 09:30 | NUR ---
Greene and arterial line d/c'd
--- NOTE | 2016-11-09 11:30 | NUR ---
Patient requesting to get up to void, Quang with PT assisted patient to BSC. Patient back to chair, set up with lunch. Call light within reach. Reinstructed patient manager professional development light use.
--- NOTE | 2016-11-09 12:38 | NUR ---
Patients sister in room to see patient. She is requesting glucerna for patient as she doesnt eat much, will contact Trino with dietary. Sister also states that the patient had justin colored eye glasses upon admission. These cannot be found in the CVICU room the patient is currently in. Called Med II and requested they look.
--- NOTE | 2016-11-09 12:48 | NUR ---
* Is the patient Alert and Oriented? Yes 0 * Preadmission Environment [facility] Shelter 0 * Facility Name [facility] [phone] * Partial ADLs (Assistance needed) Bathing Dressing Medication Management 0 * List name and contact numbers for known caregivers / representatives who currently or will assist patient after discharge: Sister Hugo Woodward [phone] * Additional services required to return to the preadmission environment? Yes 0 * Can the patient safely return to the preadmission environment? Yes 0 * Has this patient been hospitalized within the prior 30 days at any hospital? No Patient Name: JEREMY PUCKETT Admission Status: Elective Accout number: [id number] Admission Date: 11-07-2016 : 1945 Admission Diagnosis:OCCLUSION AND STENOSIS OF LEFT CAROTID ARTERY Attending: ARIADNA RAZO Current LOS: 2 Anticipated DC Date: 11-11-2016 [facility] Disposition[facility] Primary Insurance: MEDICARE A & B Discharge Planning Comments: CM met with patient to assess dc plans/needs. Patient is along term care resident at [facility]. She primarily uses a at facility for mobility. At dc, she will return to the facility to a half-way bed. Anticipate DC 11/11. CM will follow & assist as needed. Senior Medical Director: Candice Farooq
--- NOTE | 2016-11-09 13:00 | NUR ---
Celviprex titrated off.
--- NOTE | 2016-11-09 13:46 | NUR ---
Patient remains up in chair, watching TV, call light in hand. Cleviprex remains off, SBP 120s.
--- NOTE | 2016-11-09 15:16 | NUR ---
Patients sister here for 1500 visitation, she states that the patient has been up in the chair for too long. I informed her that we like to have our patients up for all of their meals of the day and that the patient has not expressed any discomfort. Spoke to Quang with PT to ensure he would be getting patient back to bed before leaving for the day. New linens placed on bed.
--- NOTE | 2016-11-09 15:39 | NUR ---
Patients sister found patients glasses, she went to [employer] and found a bag of some of her things including her glasses.
--- NOTE | 2016-11-09 15:44 | NUR ---
Patients sister request that we call her before discharging patient back to [facility].
--- NOTE | 2016-11-09 16:10 | NUR ---
Chris with PT got patient back to bed, pt connected to monitors. Call light in lap.
--- NOTE | 2016-11-09 16:25 | NUR ---
Armando Sen RN to inform her of steady increase in patients HR throughout my shift, she will inform Ortiz but no new orders at this time.
--- NOTE | 2016-11-09 17:00 | NUR ---
Patient sleeping. rounding on patient, she awoken briefly. No new orders at this time.
--- NOTE | 2016-11-09 19:30 | NUR ---
REPORT RECEIVED AND CARE ASSUMED. SHIFT ASSESSMENT COMPLETED SEE FLOWSHEET. IVF AND TUBING CURRENT AND TUBING DUE TO BE CHANGED MONDAY PER LABEL. PT BEING MONITORED PER STANDARD ICU PROTOCOL WITH ALL ALARMS VERIFIED AND SET. BP TO BE MAINTAINED BETWEEN 90-140. PT IS SOMEWHAT SLOW TO PROCESS BUT ABLE TO CORRECTLY STATE THE YEAR PLACE AND NAME WHEN GIVEN ADEQUATE TIME. SLIGHT EDEMA TO LEFT NECK DRESSING. THIS EXAMINED WITH DAY RN WHO STATES THIS IS UNCHANGED AND HAS BEEN UNCHANGED FROM THIS THROUGHOUT HER SHIFT. DRESSING TO RIGHT RADIAL S/P REMOVAL OF LEFT A-LINE.
--- NOTE | 2016-11-09 21:00 | NUR ---
NO VISITORS AT THIS TIME. PT HAS BEEN WATCHING TV. VSS CONTINUE TO MONITOR
--- NOTE | 2016-11-09 23:00 | NUR ---
SHIFT REASSESSMENT COMPLETED SEE FLOWSHEET. PT HAS HAD ONE INCONTINENT EPISODE. DIFFICULT TO DETERMINE IF PT WAS AWARE OF THE INCONTINENCE PRIOR TO HAPPENING. PERICARE AND INCONTINENCE CARE WERE PROVIDED. COMPLETE BATH WAS GIVEN. NO CHANGE IN NEURO ASSESSMENT
[2016-11-10] VITALS (38 sets, daily range): BP systolic 102–202; BP diastolic 50–91; Ht 162.6 cm; Wt 84.5 kg
--- NOTE | 2016-11-10 01:00 | NUR ---
PT SLEEPING VSS CONTINUE TO MONITOR
--- NOTE | 2016-11-10 03:00 | NUR ---
PT INCONTINENT OF URINE. PT STATED SHE NEEDED TO "USE THE BATHROOM" PT ASSISTED UP TO BS WITH ASSIST OF 2. PT DEMONSTRATED POOR STRENGTH. CONTINENT OF STOOL. ASSISTED BACK TO BED AND REPOSITIONED.
--- NOTE | 2016-11-10 03:32 | NUR ---
B/P ELEVATED, PT INITIALLY DENIED PAIN BUT NOTICED GRIMACING. PT DID ADMIT TO PAIN INCISIONAL TYPE, MEDS GIVEN FOR PAIN WILL MONITOR B/P FOR PARIMETERS
--- NOTE | 2016-11-10 05:30 | NUR ---
NOTE SOME FINE CRACKLES IN LOWER BASES. SPO2 89-91. PT ENCOURAGED TO COUGH AND DEEP BREATH. PT UNABLE TO COMPREHEND HOW TO CORRECTLY DO INCENTIVE SPIROMETRY. RT HAS BEEN WORKING WITH PT WITH LITTLE PROGRESS. WILL CONTINUE TO ENCOURAGE PT TO TCDB. PT DOES REQUIRE ASSISTANCE WITH TURNING
--- NOTE | 2016-11-10 07:00 | NUR ---
PT REPORT REC'D, PT CARE ASSUMED, PT RESTING IN BED WITH EYES CLOSED, NO C/O PAIN, VSS, 2LNC. RIGHT SUBCLAVIAN CVL WITH FLUIDS INFUSING, SEE FLOW SHEET, DRESSING CDI. LEFT NECK DRESSING CDI, LEFT UPPER CHEST DRESSING CDI. ABDOMEN FOLD REDDNESS NOTED. INCONTINENT OF URINE. SHIFT ASSESSMENT COMPLETED, SEE FLOW SHEET. ROOM FREE OF CLUTTER, CALL LIGHT IN REACH, WILL CONTINUE TO MONITOR PT.
--- NOTE | 2016-11-10 09:13 | NUR ---
PHYSICAL THERAPY IN WITH PT, TRANSFERED PT FROM BED TO CHAIR, PT TOLERATED WELL, VSS, CALL LIGHT IN REACH, WILL CONTINUE TO MONITOR PT.
--- NOTE | 2016-11-10 09:45 | NUR ---
Rehab Note- Acute Rehab Prescreen order received. The patient continues on IV cardiac meds. HAs been seen by Physical therapy and has a history of not being very ambulatory and resides in a snf. Will continue to follow at this time. Thank you or this referral! Aylin Basilio RN Clinical Liaison, [facility] Rehab
--- NOTE | 2016-11-10 11:00 | NUR ---
PT SITTING UP IN CHAIR, NO C/O PAIN, VSS, REASSESSMENT COMPLETED, SEE FLOW SHEET. ROOM FREE OF CLUTTER, CALL LIGHT IN REACH, WILL CONTINUE TO MONITOR PT.
--- NOTE | 2016-11-10 12:52 | NUR ---
PT FAMILY AT THE BEDSIDE, ALL QUESTIONS ANSWERED, VSS, WILL CONTINUE TO MONTIOR PT.
--- NOTE | 2016-11-10 19:00 | NUR ---
1900: Pt rec'd resting with eyes closed. Pt opens eyes to repeated verbal stimuli and movement. Pt linen saturated with urine at this time. Complete bath and linen change done. Pt SBP showing 180's at this time. Replaced NIBP cuff and checked connections. Pt repositioned after bath complete HOB 30 degrees on right side.
--- NOTE | 2016-11-10 20:00 | NUR ---
2000: Pt remains resting with eyes closed. Open to verbal and answers questions, but speech is garbeled at times. Pt will follow commands with repeated verbal request and moves extrem x4 vs. gravity. Pupils VIRAJ+ bilat. Pt left neck dressing intact. No s/s of bleeding, oozing, swelling, or stidor assessed. Pt left upper chest dressing remains inact with no s/s of bleeding noted. Pt breathing 023LNC with RR14x with SPO2 98%. Lungs clear bilat with decreased bases with auscultation. MMP and no cyanosis noted. Encouraged DBC and pt attempted cough with moderate effort. No expectoration at this time. S1S2 regular SR/ST 95-105 bpm. SBP continues increased >160 MMHG. Again, replaced NIBP and repositoned patient. ABD soft NT BS x4 hypoactive. Pt is incontinent of urine. SR up x3, call light in reach, bed alarm on and audible, All other alarms set and audible.
--- NOTE | 2016-11-10 21:00 | NUR ---
2100: Pt SBP remains increased. Cleviprex gtt started as per orders at 2 mg/hr via right DLSC.
--- NOTE | 2016-11-10 23:00 | NUR ---
2300: Pt SBP 140-150 at this time with Cleviprex infusing at 2 mg/hr. No change in pt RESP/CV/NV status.
[2016-11-11] VITALS (50 sets, daily range): BP systolic 75–182; BP diastolic 37–104
--- NOTE | 2016-11-11 01:15 | NUR ---
0115: Pt states she needs her bed changed. Pt linen saturated with urine. Complete linen and CHG bath done at this time. Encouraged DBC. Pt with stronger effort and produced small amount green expectorant. Pt remains 024LNC. Pt continues SBP 140-150, titrating Cleviprex as per orders. No change in incision sites from assessment.
--- NOTE | 2016-11-11 01:40 | NUR ---
0140: Pt with frequent periods of SPO2 desaturation. Pt repositioned HOB 45 degrees and airway positioned in-line. Encouraged DBC with patient. SPO2 increased to 99% at this time. Pt remains SR on CM with occasional PVCs seen at this time.
--- NOTE | 2016-11-11 04:00 | NUR ---
0400: Pt remains SR/ST 90-100's with SBP 120-130. Cleviprex as per IV GTTS flow sheet. Pt remains lethargic, but arouse to voice and answers questions approp. No change in dressings from assessment and trachea is midline, no stridor, no s/s of bleeding noted. Encouraged DBC and pt able to expectorate small amount of green sputum at this time.
[2016-11-11 04:52] LABS: CALC OSMOLALITY 290 mosm/kg (275-300); CARBON DIOXIDE 35.3 mmol/L (21.0-32.0); CHLORIDE - SERUM 102 mmol/L (98-107); CREATININE - SERUM 0.5 mg/dL (0.6-1.3); POTASSIUM - SERUM 3.6 mmol/L (3.5-5.1); SODIUM 142 mmol/L (136-145); UREA NITROGEN 10 mg/dL (7-18); eGFR NON AFRICAN AMERICAN > 90 mL/min (90-120)
[2016-11-11 05:03] LABS: GLUCOSE 252 mg/dL (74-106)
[2016-11-11 05:14] LABS: BASOPHILS 0.2 % (0-2); EOSINOPHILS 2.5 % (0-7); HEMATOCRIT 43.6 % (36.0-48.0); HEMOGLOBIN 13.6 g/dL (12-16); IMMATURE GRANULOCYTES 0.2 % (0-5); LYMPHOCYTES 19.6 % (15-50); MCH 25.7 pg (26.0-34.0); MCHC 31.2 g/dL (31.0-37.0); MCV 82.3 fL (80.0-100.0); MEAN PLATELET VOLUME 11.5 fL (7.4-10.4); MONOCYTES 7.7 % (2-11); NEUTROPHILS 69.8 % (40-80); RDW 15.4 % (11.5-14.5); WBC 8.4 10x3/uL (4.8-10.8)
[2016-11-11 05:15] LABS: PLATELET COUNT 220 10x3/uL (130-400)
--- NOTE | 2016-11-11 06:00 | NUR ---
0600: Pt remains arousable to verbal and answers questions. Pt remains SR/ST with SBP 130's. Pt remains on cleviprex as per orders.
--- NOTE | 2016-11-11 08:11 | NUR ---
CLEVIPREX TITRATED OFF. BP REMAINS WITHIN PARAMETERS.
--- NOTE | 2016-11-11 10:44 | NUR ---
Rehab Note- Spoke with ADI Harvey yesterday afternoon and plans were to discharge the patient back to [facility]. Thank you for this referral! Aylin Basilio RN Clinical Liaison, [facility] Rehab
[2016-11-11] MEDS ORDERED: OMNICEF300 MG PO (12:22)
--- NOTE | 2016-11-11 14:00 | NUR ---
O2 OFF FOR DISCHARGE. O2 SAT 80 TO 90 PERCENT.
--- NOTE | 2016-11-11 14:02 | NUR ---
Patient Name: JEREMY PUCKETT Encounter No: [id number] : 1945 Primary Insurance: MEDICARE A & B Anticipated DC Date: 11-11-2016 Planned Disposition: [facility] Facility External Planned Provider: Adrianne GRACE follow-up note: DC order rec'd. Patient and family in agreement with discharge plan. No changes to plan. Notified Mami with Adrianne [address] of [facility]. Patient will transport via van to a [facility] bed. sales department supervisor time around 1530. Nursing to call report to [phone]. Candice Farooq
--- NOTE | 2016-11-11 15:00 | NUR ---
DR RAZO HERE INSTRUCT PT O2 SAT 80 TO 90 PERCENT. ON RA. CXR ORDERED.
--- NOTE | 2016-11-11 15:30 | NUR ---
HOLD DC TIL AM O2 ON 1 LITER. O2 SAT 99 PERCENT.
--- NOTE | 2016-11-11 17:00 | NUR ---
BATH AND LINEN CHANGED. LG AMT OF INCONT URINE,
--- NOTE | 2016-11-11 20:00 | NUR ---
2000: Pt linen saturated with urine at this time. Complete bath and linen change done at this time. Pt assisted with turning and moved x4 extrem with commands. Pt pulled up in bed x2RNs and repositioned HOB 40 degrees at this time. Pt remains 022LNC with RR14x with SPO2 94-95%. Lungs with crackles heard bilaterally with aucultation. MMP and no cyanosis noted. Encouraged DBC. Pt with strong effort and occasional expectorant. Pt unable to perform IS at this time. Pt blowing vs IS even with repeated verbal instructions.
--- NOTE | 2016-11-11 21:00 | NUR ---
2100: Pt BP increased at this time. Pt remains resting with eyes closed at this time, but easliy arousable to verbal. BP rechecked multiple times and larger cuff utilized related to arm circumference. Pt BP checked bilaterally for differences in BP. Notified MD and new orders rec'd and placed in [employer]. Lasix 40 mg IVP and NTG patch 0.6mg/hr placed (NTG to Left upper chest wall) at this time. PT FSBS elevated (see emar) and Regular Insulin admin as per SS.
--- NOTE | 2016-11-11 22:15 | NUR ---
2215: Pt SBP decreased after NTG and Lasix admin. NTG patch removed at this time.
--- NOTE | 2016-11-11 23:20 | NUR ---
2320: Pt SBP increased 103 at this time. NTG patch remains off. Pt NEURO status unchanged. Pt remains 022LNC with RR14x with SPO2 95-97%.
[2016-11-12] VITALS (26 sets, daily range): BP systolic 84–147; BP diastolic 45–583
--- NOTE | 2016-11-12 01:40 | NUR ---
0140: Bed satruated with urine at this time. Pt complete bath done including bessie care, SCD/KARTHIK removal, and reapply Nystatin powder to skin folds. Pt repositioned for comfort with extrem off bed with pillow supports. Pt remains SR/ST 90-100 bpm w/ SBP 117 at this time. NTG patch remains off. Pt remains 022LNC with RR14x with SPO2 97%.
--- NOTE | 2016-11-12 05:00 | NUR ---
0500: Pt with occasional periods of sleep apnea. (Decreased SPO2 at times) Pt easily arousable to verbal and follows commands. Pt alert, but not oriented to time. Verbal reorientation is successful. Pt denies pain or other needs at this time. Pt remains 022LNC.
--- NOTE | 2016-11-12 06:00 | NUR ---
0600: Pt repositioned for comfort at this time. No change in pt RESP/CV/NV status. FSBS checked and treated with regular Insulin per EMAR.
--- NOTE | 2016-11-12 07:36 | NUR ---
TOTAL BED CHANGE PROVIDED AT THIS TIME. INCONTINENT VOID NOTED. PT CLEANED UP AND TONI CARE PROVIDED VIA TOTAL ASSIST. PT ABLE TO TURN SELF IN BED VIA MODERATE ASSIST. NO ACUTE DISTRESS NOTED. WILL CONTINUE PLAN OF CARE.
--- NOTE | 2016-11-12 09:35 | NUR ---
UP IN CHAIR BESIDE BED WATCHING TV AT THIS TIME WITH ASSIST FROM PHYSICAL THERAPY. NO ACUTE DISTRESS NOTED. CALL LIGHT IN REACH. WILL CONTINUE PLAN OF CARE.
--- NOTE | 2016-11-12 12:16 | NUR ---
NOTED PT RECIEVED SCHEDULED NITRO PATCH OF 0.6 MG. NOTED BLOOD PRESSURE BEFORE ADMIN WAS 159/75 AT 1117, AFTER ADMIN OF SCHEDULED NITRO PATCH, BLOOD PRESSURE WAS NOTED AT 95/55 AT 1201, 79/42 AT 1205, AND 103/[address] RAZO NOTIFIED AT THIS TIME. NOTED NEW ORDER TO CHANGE DOSAGE OF NITRO PATCH FROM 0.6MG TO 0.4 MG. WILL CONTINUE TO OBSERVE.
--- NOTE | 2016-11-12 12:51 | OP ---
PATIENT NAME: JEREMY PUCKETT MEDICAL RECORD: [id number] :49 LOCATION:[facility].CV08 ADMISSION DATE:11/07/16 SURGEON: LJ RAZO MD DATE OF OPERATION: 11/08/2016 SURGEON: Lj Razo MD ANESTHESIA: General endotracheal, Dr. Hinson. OPERATION PERFORMED: Left carotid endarterectomy with patch angioplasty. PREOPERATIVE DIAGNOSIS: Severe left internal carotid artery stenosis. POSTOPERATIVE DIAGNOSIS: Severe left internal carotid artery stenosis. INDICATION FOR OPERATION: Severe left internal carotid artery stenosis. FINDINGS AT OPERATION: Severe left internal carotid artery stenosis. There were no EEG changes with clamping or unclamping of the carotid artery. ESTIMATED BLOOD LOSS: Less than 150 cc. DESCRIPTION OF PROCEDURE: After informed consent, adequate preoperative medication evaluation, the patient was brought to the operating room, placed on the table in the supine position. After induction of general endotracheal anesthesia and application of appropriate monitoring devices, the left neck and chest were prepped and draped in a sterile field, utilizing Betadine scrub, alcohol, and Betadine solution. A Betadine-impregnated drape was also used. An oblique incision was made in the skin crease. Dissection carried down the fascia. Hemostasis maintained with electrocautery. Facial vein was identified and divided. Utilizing sharp dissection, the common carotid, internal and external carotid arteries were dissected free from surrounding structures, protecting the neurological structures. The patient was given a calculated dose of heparin, after 3 minutes, clamps were applied. After 2 minutes, no EEG changes. The arteriotomy was extended with Jules scissors. Artery underwent endarterectomy sharply. Artery underwent extensive debridement and irrigation. Utilizing a vascular patch of CorMatrix and running 7-0 Prolene suture, the arteriotomy was closed with patch angioplasty technique. All maneuvers to remove trapped air were performed. The clamps were removed sequentially. There were no EEG changes. The patient was given a calculated dose of protamine to reverse the heparin. Hemostasis was achieved, and a #7 Alok-Alves drain was left in the depths of wound and brought through the base of the neck. Neck was again irrigated. Instrument counts and sponge count were correct times 2. Neck was closed in layers utilizing 3-0 Vicryl on the platysma, 5-0 subcuticular Monocryl on the skin. Sterile dressings were applied. The patient tolerated the procedure well and was transferred to CV ICU in stable condition. TRANSINT:[id number] Voice Confirmation ID: [id number] DOCUMENT ID: [id number] OPERATIVE REPORT [id number] JEREMY PUCKETT EDWARD MD at 1251 CC: [id number] DICTATION DATE: 11/08/16 1137 SAFETY DEPOSIT CLERK: 11/08/16 [address] [place] [address]
--- NOTE | 2016-11-12 13:22 | NUR ---
BP NOTED 97/42 (60) AT 1310 AND 104/52 (69) WITH HEART RATE 117. DR RAZO IN ROOM. NOTED ORDER TO HOLD NITRO PATCH FOR NOW. PT UP IN CHAIR BESIDE BED, SISTER IN ROOM VISITING WITH PT. NO ACUTE DISTRESS NOTED. WILL CONTINUE PLAN OF CARE.
--- NOTE | 2016-11-12 15:00 | NUR ---
OXYGEN SATURATION RANGING FROM 83%-89%, 0.5L OF O2 PLACED AT THIS TIME VIA NC. WILL CONTINUE TO OBSERVE.
--- NOTE | 2016-11-12 15:22 | NUR ---
UP IN BED AT THIS TIME VIA PHYSICAL THERAPY ASSIST. NO ACUTE DISTRESS NOTED. PT WATCHING TV AT THIS TIME. WILL CONTINUE PLAN OF CARE.
--- NOTE | 2016-11-12 17:08 | NUR ---
LYING IN BED RESTING AT THIS TIME. RESPIRATIONS STEADY AND UNLABORED. AWAKENS WHEN SPOKEN TO THEN QUICKLY GOES BACK TO SLEEP. NO ACUTE DISTRESS NOTED. WILL CONTINUE PLAN OF CARE.
--- NOTE | 2016-11-12 18:27 | NUR ---
INCONTIENT VOID NOTED AT THIS TME. TOTAL BED CHANGE PROVIDED VIA TOTAL TONI CARE ASSIST. PT NOW SITTING UP IN BED EATING SUPPER. DENIES ANY NEEDS. NO ACUTE DISTRESS NOTED. WILL CONTINUE PLAN OF CARE.
--- NOTE | 2016-11-12 19:45 | NUR ---
PT RESTING QUIETLY AT THIS TIME. AROUSES EASILY. FOLLOWS COMMANDS. RESPIRATIONS SHALLOW, SPO2 94, CLEAR LUNG SOUNDS. S1S2 HEARD, PERIPHERAL PULSES PRESENT. BOWEL SOUNDS ACITVE X4. COUGH/DB ENCOURAGED. PT REPOSITIONED FOR COMFORT AT THIS TIME. FRESH WATER TO BEDSIDE. VSS, DENIES PAIN AT THIS TIME. CALL LIGHT WITHIN PT REACH. COPC.
--- NOTE | 2016-11-12 21:30 | NUR ---
NO VISITORS AT THIS TIME. PT SLEEPING QUIETLY, VSS. NO S/S OF DISTRESS OR PAIN AT THIS TIME. CALL LIGHT WITHIN PT REACH. CPOC.
--- NOTE | 2016-11-12 23:30 | NUR ---
REASSESSMENT COMPLETE, SEE FLOWSHEET FOR ALL FINDINGS. NO ACUTE CHANGES NOTED AT THIS TIME. VSS, NO S/S OF PAIN. PT REPOSITIONED FOR COMFORT. ORAL CARE ADM. COUGH/DB ENCOURAGED. PT UNABLE TO PERFORM IS AFTER MULTIPLE TEACHING ATTEMPTS. CALL LIGHT AND BEDSIDE TABLE WITHIN PT REACH. CPOC.
[2016-11-13] VITALS (26 sets, daily range): BP systolic 91–154; BP diastolic 33–98
--- NOTE | 2016-11-13 03:03 | NUR ---
PT INCONTINENT OF URINE. LINEN CHANGE AND PARTIAL BATH ADM. FACIAL GROOMING ADM. COUGH/DB ENCOURAGED. VSS, NO C/O PAIN OR S/S OF DISTRESS AT THIS TIME. PT REPOSITIONED IN BED FOR COMFORT. DENIES NEEDS AT THIS TIME. CALL LIGHT WITHIN PT REACH. CPOC.
--- NOTE | 2016-11-13 04:15 | NUR ---
PT INCONTINENT OF URINE. TOTAL LINEN CHANGE COMPELTED AT THIS TIME. VSS, NO C/O PAIN. NO ACUTE CHANGES NOTED AT THIS TIME. CALL LIGHT AND BEDSIDE TABLE WITHIN PT REACH. CPOC.
[2016-11-13 06:20] LABS: BASOPHILS 0.4 % (0-2); EOSINOPHILS 5.9 % (0-7); HEMATOCRIT 36.6 % (36.0-48.0); HEMOGLOBIN 11.4 g/dL (12-16); IMMATURE GRANULOCYTES 0.2 % (0-5); LYMPHOCYTES 25.4 % (15-50); MCH 25.9 pg (26.0-34.0); MCHC 31.1 g/dL (31.0-37.0); MCV 83.2 fL (80.0-100.0); MEAN PLATELET VOLUME 11.4 fL (7.4-10.4); NEUTROPHILS 55.1 % (40-80); RDW 14.9 % (11.5-14.5); WBC 11.2 10x3/uL (4.8-10.8)
[2016-11-13 06:22] LABS: PLATELET COUNT 383 10x3/uL (130-400)
[2016-11-13 06:28] LABS: CALC OSMOLALITY 296 mosm/kg (275-300); CALCIUM 8.5 mg/dL (8.5-10.1); CHLORIDE - SERUM 99 mmol/L (98-107); CREATININE - SERUM 0.6 mg/dL (0.6-1.3); GLUCOSE 252 mg/dL (74-106); POTASSIUM - SERUM 3.1 mmol/L (3.5-5.1); SODIUM 143 mmol/L (136-145); UREA NITROGEN 22 mg/dL (7-18); eGFR NON AFRICAN AMERICAN > 90 mL/min (90-120)
--- NOTE | 2016-11-13 07:09 | NUR ---
PT INCONTINENT OF URINE, COMPLETE LINEN CHANGE. TONI CARE/PARTIAL BATH GIVEN. VSS, NO C/O PAIN, NO S/S OF DISTRESS. CALL LIGHT WITHIN PT REACH. CPOC.
--- NOTE | 2016-11-13 07:30 | NUR ---
UP IN BED RESTING AT THIS TIME. NO ACUTE DISTRESS NOTED. RESPIRATIONS STEADY AND UNLABORED. OXYGEN AT 1L VIA NC AT THIS TIME, PT OXYGEN SATURATION 97%, PT SWITCHED TO ROOM AIR, OXYGEN SATURATION 93%. PT AWAKENS EASILY WHEN SPOKEN TO THEN QUICKLY FALLS BACK TO SLEEP AFTER CONVERSATION IS OVER. DENIES ANY NEEDS. WILL CONTINUE PLAN OF CARE.
--- NOTE | 2016-11-13 08:21 | NUR ---
PT NOTED TO DESAT WHILE RESTING TO 85% AND HOLDING. 1L OXYGEN PLACED AT THIS TIME VIA NC, OXYGEN SATURATION INCREASED TO 90%. PTS RESPIRATIONS STEADY AND UNLABORED. AWAKENS EASILY WHEN SPOKEN TO. WILL CONTINUE PLAN OF CARE.
--- NOTE | 2016-11-13 09:26 | NUR ---
UP IN CHAIR ASSISTED BY PHYSICAL THERAPY. OXYGEN AT ROOM AIR, OXYGEN SATURATION IS 88%. PT AWAKE WATCHING TV. DENIES ANY NEEDS. WILL CONTINUE PLAN OF CARE.
--- NOTE | 2016-11-13 12:33 | NUR ---
UP IN CHAIR BESIDE BED EATING LUNCH AT THIS TIME WITH ASSIST FROM FAMILY. NO ACUTE DISTRESS NOTED. OXYGEN SATURATION AT 88% TO ROOM AIR. WILL CONTINUE PLAN OF CARE.
--- NOTE | 2016-11-13 13:07 | NUR ---
UP IN CHAIR AWAKE WATCHING TV AT THIS TIME AND VISITING WITH SISTER. DENIES ANY NEEDS. NO ACUTE DISTRESS NOTED. WILL CONTINUE PLAN OF CARE.
--- NOTE | 2016-11-13 14:03 | NUR ---
PULSE OXYGEN SATURATION READING AT 79% WITH GOOD WAVEFORM, PT ASSESSED AND NOTED TO BE RESTING. OXYGEN AT 1L VIA NC ADMIN AT THIS TIME. ABLE TO WAKE PT UP ENOUGH FOR HER TO RESPOND TO QUESTIONS WHEN ASKED, STATED SHE FELT FINE AND WANTED TO REST. WILL CONTINUE PLAN OF CARE.
--- NOTE | 2016-11-13 15:08 | NUR ---
INCONTINENT VOID NOTED AT THIS TIME, CLEANED UP VIA TOTAL ASSIST. PT ABLE TO TURN VIA MODERATE ASSIST. NO ACUTE DISTRESS NOTED. WILL CONTINUE PLAN OF CARE.
--- NOTE | 2016-11-13 15:54 | NUR ---
PT RESTING WITH EYES CLOSED. AWAKENS WHEN SPOKEN TO AND GOES BACK TO SLEEP. DENIES ANY NEEDS. OXYGEN SATURATION AT 97% AT 1L OXYGEN VIA NC, OXYGEN DECREASED AT THIS TIME TO 0.5L O2 VIA NC. WILL CONTINUE TO OBSERVE.
--- NOTE | 2016-11-13 17:53 | NUR ---
BED BATH AND TOTAL LINEN CHANGE PROVIDED AT THIS TIME. PT NOTED TO HAVE INCONTINENT VOID AT THIS TIME WELL. LINEN CHANGE, BED BATH, ALONG WITH TONI CARE PROVIDED VIA TOTAL ASSIST. PT TURNS SELF VIA MODERATE ASSIST. ABLE TO FOLLOW COMMANDS. NO ACUTE DISTRESS NOTED. PT REPOSITIONED Q2H. WILL CONTINUE PLAN OF CARE.
--- NOTE | 2016-11-13 18:02 | NUR ---
OXYGEN SATURATION AT 97% WITH 0.5L O2 VIA NC. PT NOW AT ROOM AIR, OXYGEN SATURATION AT 91%. WILL CONTINUE TO OBSERVE.
--- NOTE | 2016-11-13 18:54 | NUR ---
OXYGEN SATURATION NOTED AT 76% WITH GOOD WAVEFORM. PT ASSESSED AND NOTED SLEEPING, RESPIRATIONS STEADY AND UNLABORED. OXYGEN ADMIN AT 1L VIA NC. OXYGEN SATURATION NOW AT 95%. PT AWAKENS WHEN SPOKEN TO THEN QUICKLY GOES BACK TO SLEEP. NO ACUTE DISTRESS NOTED. WILL CONTINUE PLAN OF CARE.
--- NOTE | 2016-11-13 19:00 | NUR ---
REPORT RECEIVED AND ASSESSMENT COMPLETED. PT IS POT OP LEFT CAROTID BY DR RAZO. PT APPEARS VERY LETHARGIC, THOUGH IS AWAKE REPONSIVE, AND ORIENTED AT THIS TIME. SHE IS ON 1L NC. O2 SAT 97. WILL TITRATE DOWN TO ROOM AIR THROUGHOUT THE SHIFT. SEE ASSESSMENT FLOWSHEET FOR FULL DETAILS. ALL VSS. WILL MONITOR FOR CHANGES
--- NOTE | 2016-11-13 21:00 | NUR ---
2100 MEDS GIVEN. O2 OF AT THIS TIME. WILL CONTINUE TO MONITOR
--- NOTE | 2016-11-13 23:00 | NUR ---
REASSESSMENT COMPLETED AT THIS TIME. SEE FLOWSHEET FOR FULL DETAILS. NO OTHER CHANGES IN STATUS AT THIS TIME. WILL MONITOR
[2016-11-14] VITALS (29 sets, daily range): BP systolic 91–153; BP diastolic 44–78
--- NOTE | 2016-11-14 01:00 | NUR ---
no changes in patient status at this time. vss. will monitor
--- NOTE | 2016-11-14 03:00 | NUR ---
REASSESSMENT COMPLETED. PT IS STILL VERY LETHARGIC AT THIS TIME. IT IS DIFFICULT TO GET HER TO PROVIDE A RESPONSE FOR ORIENTATION QUESTIONS, THOUGH SHE WILL ANSWER CORECTLY WITH ENOUGH PROMPTING. NO OTHER CHANGES AT THIS TIME. VSS. WILL MONITOR
--- NOTE | 2016-11-14 05:00 | NUR ---
PT HAD INCONTINENT URINATION AT THIS TIME. COMPLETE LINEN CHANGE PERFORMED. PT STILL ON 1L O2. SAT 88% AT THIS TIME.
[2016-11-14 06:48] LABS: CALC OSMOLALITY 296 mosm/kg (275-300); CALCIUM 9.1 mg/dL (8.5-10.1); CARBON DIOXIDE 39.1 mmol/L (21.0-32.0); CHLORIDE - SERUM 101 mmol/L (98-107); CREATININE - SERUM 0.6 mg/dL (0.6-1.3); GLUCOSE 246 mg/dL (74-106); SODIUM 144 mmol/L (136-145); UREA NITROGEN 19 mg/dL (7-18); eGFR NON AFRICAN AMERICAN > 90 mL/min (90-120)
[2016-11-14 06:53] LABS: POTASSIUM - SERUM 3.6 mmol/L (3.5-5.1)
--- NOTE | 2016-11-14 07:44 | NUR ---
REPORT RECEIVED. SHIFT ASSESSMENT COMPLETE. PT RESPONDS APPROPRIATELY WHEN AWAKENED. NO DISTRESS. PT PULLED UP IN BED AND BREAKFAST TRAY PROVIDED.
--- NOTE | 2016-11-14 09:16 | NUR ---
PT HAS URINATED ON SELF. NO NOTIFICATION TO NURSE. PT CLEANED UP AND NEW GOWN PROVIDED. PHYSICAL THERAPIST AT BEDSIDE TO ASSIST PATIENT TO CHAIR. CALL LIGHT IN REACH.
--- NOTE | 2016-11-14 09:24 | NUR ---
NUTRITION F/U CHART REVIEWED. PT VISIT. TOLERATING ADA DIET WITH > 50% INTAKE BREAKFAST. WILL CONTINUE TO PROVIDE DIET, MONITOR INTAKE. RD FOLLOWING
--- NOTE | 2016-11-14 11:17 | NUR ---
PT O2 SAT ALARMING. PT CURRENTLY ON ROOM AIR AND HAS BEEN PAST 3 HOURS. READER NOT SEATED PROPERLY FOR READING. ONCE PLACED IN PROPER POSITION READS 92-95%. BLOOD PRESSURE READING IN PROGRESS. PT CONSTANTLY MOVING ARM AND DISRUPTING READING. SHOWING SYSTOLIC IN 80'S.
--- NOTE | 2016-11-14 13:00 | NUR ---
PT HAS BEEN INTUBATED. PT SHOWED REJI ON MONITOR.UPON ENTERING ROOM WAS NOT BREATHING. PT WAS UP IN CHAIR. SWEPT MOUTH WITH FINGER AND FOUND NO OBSTRUCTIONS IN AIRWAY. BEGAN BAGGING AND AT 1212 CODE CALLED. PT TRANSFERED FROM CHAIR TO BED. AND WAS INTUBATED BY DR PIMENTEL. DR RAZO WAS CALLED AND UPDATED.
--- NOTE | 2016-11-14 14:11 | NUR ---
SISTER CALLED AND UPDATED TO EVENTS. WILL BE COMING TO SEE HER. DR RAZO HAS BEEN IN TO SEE PATIENT
--- NOTE | 2016-11-14 14:32 | NUR ---
PT OFF UNIT FOR CT SCAN
--- NOTE | 2016-11-14 14:52 | NUR ---
PT RETURNED TO ROOM FROM CT. MONITORING EQUIPMENT APPLIED.
--- NOTE | 2016-11-14 15:32 | NUR ---
SISTER BY TO SEE PATIENT. UPDATE GIVEN.
--- NOTE | 2016-11-14 17:45 | NUR ---
DR RAZO HAS BEEN BY TO SEE PATIENT AND SPEAK TO SISTER. UPDATE WAS PROVIDED. PT STILL SEDATED ON VENT. WILL CONTINUE TO MONITOR.
--- NOTE | 2016-11-14 19:30 | NUR ---
REPORT RECIEVED. ASSESSMENT COMPLET EPER FLOW SHEET. VSS. REPOSITIOEND ON R SIDE. ORAL ENDOTRACH CARE ADM. WILL CONTINUE TO MONITOR
--- NOTE | 2016-11-14 21:14 | NUR ---
NO FAMILY AT THIS TIME. VSS. REPOSITIONED ON L SIDE. ORAL ENDOTRACH CARE ADM. WILL CONTNIUE TO MONITOR
--- NOTE | 2016-11-14 23:13 | NUR ---
REASSESSMENT COMPLETE PER FLOW SHEET. VSS. NO NEW CHANGES. WILL CONTINUE TO MONITOR
[2016-11-15] VITALS (24 sets, daily range): BP systolic 92–139; BP diastolic 44–74
--- NOTE | 2016-11-15 01:00 | NUR ---
COMPLETE BB LINEN CHANGE ADM. WILL CONTINUE TO MONITOR
--- NOTE | 2016-11-15 03:19 | NUR ---
REASSESSMENT COMPLETE PER FLOW SHEET. VSS. NO NEW CHANGES. WILL CONTINUE TO MONITOR
--- NOTE | 2016-11-15 05:50 | NUR ---
PT RESTING COMFORTABLY VSS WILL CONTINUE TO MONITOR
[2016-11-15 06:29] LABS: BASOPHILS 0.2 % (0-2); EOSINOPHILS 1.6 % (0-7); HEMATOCRIT 35.7 % (36.0-48.0); HEMOGLOBIN 11.7 g/dL (12-16); IMMATURE GRANULOCYTES 0.4 % (0-5); LYMPHOCYTES 17.7 % (15-50); MCH 26.2 pg (26.0-34.0); MCHC 32.8 g/dL (31.0-37.0); MEAN PLATELET VOLUME 11.4 fL (7.4-10.4); NEUTROPHILS 68.1 % (40-80); PLATELET COUNT 445 10x3/uL (130-400); RBC 4.47 10x6/uL (4.00-5.40); RDW 15.2 % (11.5-14.5)
[2016-11-15 06:33] LABS: MCV 79.9 fL (80.0-100.0); WBC 17.1 10x3/uL (4.8-10.8)
[2016-11-15 06:50] LABS: ANION GAP 14.3 mmol/L (8-16); CALCIUM 8.9 mg/dL (8.5-10.1); CARBON DIOXIDE 31.6 mmol/L (21.0-32.0); MAGNESIUM - SERUM 1.8 mg/dL (1.8-2.4)
[2016-11-15 06:51] LABS: CREATININE - SERUM 0.9 mg/dL (0.6-1.3)
[2016-11-15 06:52] LABS: POTASSIUM - SERUM 2.9 mmol/L (3.5-5.1)
--- NOTE | 2016-11-15 07:00 | NUR ---
PT REPORT REC'D, PT CARE ASSUMED. PT SEDATED ON VENT, VSS. RIGHT SUBCLAVIAN CVL WITH FLUIDS INFUSING, SEE FLOW SHEET. JACKSON CATHETER FREE OF KINKS WITH CLEAR YELLOW URINE RETURN TO GRAVITY. BILAT WRIST RESTAINTS. SHIFT ASSESSMENT COMPLETED, SEE FLOW SHEET. ROOM FREE OF CLUTTER, CALL LIGHT IN REACH. BED ALARM ACTIVE, WILL CONTINUE TO MONITOR PT.
--- NOTE | 2016-11-15 08:10 | NUR ---
DR. RAZO AT THE BEDSIDE, [facility], WILL CONTINUE TO MONITOR PT.
--- NOTE | 2016-11-15 09:15 | NUR ---
NO FAMILY AT THE BEDSIDE, NO SIGNS OF DISTRESS. VSS, WILL CONTINUE TO MONITOR PT.
--- NOTE | 2016-11-15 11:00 | NUR ---
REPOSITIONED PT, PROPPED WITH PILLOWS, REASSESSMENT COMPLETED, SEE FLOW SHEET. ROOM FREE OF CLUTTER, WILL CONTINUE TO MONITOR PT.
--- NOTE | 2016-11-15 12:37 | NUR ---
PT FAMILY AT THE BEDSIDE, ALL QUESTIONS ANSWERED, VSS, WILL CONTINUE TO MONITOR PT.
--- NOTE | 2016-11-15 14:09 | NUR ---
Patient Name: JEREMY PUCKETT Encounter No: [id number] : 1945 Primary Insurance: MEDICARE A & B Planned Disposition: Nursing Home Facility External Planned Provider: Adrianne Lane DCP follow-up note: DC order held 11/11 due hypoxia. Patient now intubated. No changes to plan. Case management will follow and assist as needed. Candice Farooq
--- NOTE | 2016-11-15 15:00 | NUR ---
REPOSITIONED PT, PROPPED WITH PILLOWS, VSS. REASSESSMENT COMPLETED, SEE FLOW SHEET. ROOM FREE OF CLUTTER, CALL LIGHT IN REACH, BED ALARM ACTIVE, WILL CONTINUE TO MONITOR PT.
--- NOTE | 2016-11-15 15:45 | NUR ---
DR. RAZO SPEAKING WITH FAMILY AT THE BEDSIDE, ALL QUESTIONS ANSWERED, VSS, WILL CONTINUE TO MONITOR PT.
--- NOTE | 2016-11-15 17:00 | NUR ---
REPOSITIONED PT, PROPPED WITH PILLOWS, VSS, WILL CONTINUE TO MONITOR PT.
--- NOTE | 2016-11-15 18:00 | NUR ---
NO FAMILY PRESENT, VSS, WILL CONTINUE TO MONITOR PT.
--- NOTE | 2016-11-15 19:36 | NUR ---
REPORT RECIEVED. ASSESSMENT COMPLETE PER FLOW SHEET. VSS. ORAL ENDOTRACH CARE ADM REPOSITIONED ON L SIDE. WILL CONTINUE TOMONITOR
--- NOTE | 2016-11-15 21:30 | NUR ---
REPORT REC'D AND CARE ASSUMED, REC'D PT ON VENT VIA 7.5 ETT TAPED AT 23CM LIPLINE, SEE FLOWSHEET FOR VENT SETTINGS, PT AROUSABLE TO TACTILE STIMULI BUT DOES NOT FOLLOW COMMANDS, RSCLDL DRSG CDI BOTH PORTS SALINE LOCKED, JACKSON PATENT DRAINING CONCENTRATED URINE, GENERALIZED EDEMA, BILAT SCD'S INTACT, BILAT SOFT WRIST RESTRAINTS ON, SR UP X 2, WILL MONITOR FOR CHANGES.
--- NOTE | 2016-11-15 23:00 | NUR ---
REASSESSMENT COMPLETED, PT REPOSITIONED ONTO BACK FOR COMFORT, ORAL CARE PROVIDED, THICK WHITE SECRETIONS SUCTIONED FROM MOUTH, VSS, WILL CONT TO MONITOR FOR CHANGES.
[2016-11-16] VITALS (23 sets, daily range): BP systolic 91–168; BP diastolic 37–94
--- NOTE | 2016-11-16 01:20 | NUR ---
PT REPOSITIONED UP AND ONTO LEFT SIDE SUPPORTED WITH PILLOWS
--- NOTE | 2016-11-16 03:10 | NUR ---
COMPLETE BATH AND LINEN CHANGE PROVIDED, RIGHT DLSCL DRSG CHANGED PER PROTOCOL, PT REPOSITIONED UP IN BED AND ONTO BACK, TOLERATED WELL, SR UP X 2, CALL LIGHT IN REACH.
--- NOTE | 2016-11-16 04:45 | NUR ---
RADIOLOGY @ BS FOR AM CXR, PT REPOSITIONED FOR COMFORT.
--- NOTE | 2016-11-16 06:50 | NUR ---
SERUM GLUCOSE 240, 8 UNITS REGULAR INSULIN GIVEN TO LEFT ARM, PT RESTING EYES CLOSED, RESP EVEN AND UNLABORED, VSS.
[2016-11-16 06:58] LABS: CALC OSMOLALITY 295 mosm/kg (275-300); CALCIUM 8.3 mg/dL (8.5-10.1); CARBON DIOXIDE 27.9 mmol/L (21.0-32.0); CHLORIDE - SERUM 104 mmol/L (98-107); GLUCOSE 240 mg/dL (74-106); MAGNESIUM - SERUM 1.6 mg/dL (1.8-2.4); POTASSIUM - SERUM 3.5 mmol/L (3.5-5.1); SODIUM 143 mmol/L (136-145); UREA NITROGEN 22 mg/dL (7-18)
--- NOTE | 2016-11-16 07:00 | NUR ---
SHIFT ASSESSMENT COMPLETE, VSS, CONTINUES ON VENT, ALERT TO VOICE, ABLE TO FOLLOW COMMANDS, HAND PALLET SORTER EQUAL, NO SEDATION, CVL TO RIGHT SUBCLAVIAN, NO SIGNS OF PAIN, WILL CONTINUE TO MONITOR
[2016-11-16 07:06] LABS: CREATININE - SERUM 0.6 mg/dL (0.6-1.3); eGFR NON AFRICAN AMERICAN > 90 mL/min (90-120)
[2016-11-16 07:13] LABS: BASOPHILS 0.2 % (0-2); EOSINOPHILS 1.1 % (0-7); HEMATOCRIT 32.8 % (36.0-48.0); HEMOGLOBIN 10.6 g/dL (12-16); IMMATURE GRANULOCYTES 0.4 % (0-5); LYMPHOCYTES 10.7 % (15-50); MCH 26.1 pg (26.0-34.0); MCHC 32.3 g/dL (31.0-37.0); MCV 80.8 fL (80.0-100.0); MEAN PLATELET VOLUME 12.1 fL (7.4-10.4); MONOCYTES 10.8 % (2-11); NEUTROPHILS 76.8 % (40-80); PLATELET COUNT 429 10x3/uL (130-400); RBC 4.06 10x6/uL (4.00-5.40); RDW 15.9 % (11.5-14.5); WBC 18.2 10x3/uL (4.8-10.8)
--- NOTE | 2016-11-16 09:00 | NUR ---
VSS, NO CHANGES NOTED, REPOSITIONED, NO SIGNS OF PAIN, WILL CONTINUE TO MONITOR
--- NOTE | 2016-11-16 09:44 | NUR ---
NUTRITION F/U CHART REVIEWED. PT NOW ON VENT. NURSING REPORTS POSSIBLE EXTUBATION TODAY. WILL REQUIRE NUTRITION SUPPORT IF UNABLE TO EXTUBATE AND START CLEAR LIQUIDS. RD FOLLOWING
--- NOTE | 2016-11-16 11:00 | NUR ---
PT REPOSITIONED,ON CPAP TRIALS, VSS, NO SIGNS OF PAIN
--- NOTE | 2016-11-16 12:06 | NUR ---
PT EXTUBATED, ABLE TO COUGH AND SUCTION SELF, VSS, O2 NC, WILL CONTINUE TO MONITOR
--- NOTE | 2016-11-16 13:00 | NUR ---
TOTAL BED BATH AND LINEN CHANGE PROVIDED, VSS, WILL CONTINUE TO MONITOR
--- NOTE | 2016-11-16 15:00 | NUR ---
SPOKE WITH PT FAMILY ON VISITATION, AWARE OF SWALLOW EVAL RESULTS, UP IN CHAIR PER PT, BP IN 90'S SYSTOLIC, CUFF REPOSITIONED AND CHANGED, UP IN CHAIR AND ELEVATED TO 110'S, WILL CONTINUE TO MONITOR
--- NOTE | 2016-11-16 17:00 | NUR ---
PT BACK IN BED PER PT, ALERT, VSS, REPOSITIONED, WILL CONTINUE TO MONITOR
--- NOTE | 2016-11-16 19:30 | NUR ---
REPORT RECEIVED AND CARE ASSUMED. INITIAL SHIFT ASSESSMENT COMPLETED SEE FLOWSHEET. NOTE CATHETER KINKED AND PAD WET WITH URINE. LINENS CHANGED AND JACKSON/TONI CARE DONE. PT ABLE TO ASSIST WITH TURNING FROM SIDE TO SIDE. REQUIRES TOTAL ASSIST FOR REPOSITIONING HIGHER IN THE BED. RIGHT SC CVL S/L. PORTS WITH CAPS, REMOVED AND LINES FLUSHED WITH NORMAL SALINE, CAPS REPLACED. FLUSHED EASILY. PT CONTINUES TO MONITORED PER STANDARD ICU PROTOCOL WITH ALARMS VERIFIED AND SET.
--- NOTE | 2016-11-16 21:00 | NUR ---
NO VISITORS AT THIS TIME. PT WATCHING TV
--- NOTE | 2016-11-16 21:30 | NUR ---
HS MEDS GIVEN DOCUMENTED ON MAY. MEDS CRUSHED AND ADMINISTERED WITH APPLESAUCE. PT NOTED TO HAVE VERY LOOSE COUGH BUT NOT REALLY EXPECTORATING MUCH, SEEMS TO BE SWALLOWING IT. PT WITH HOWARD IN HAND BUT NOT SEEMING TO COMPREHEND TO SPIT OUT HER SECRETIONS. WHEN ALLOWED AMPLE TIME ABLE TO CORRECTLY STATE NAME, PLACE, YEAR AND WHY SHE IS HERE IN THE HOSPITAL ALTHOUGH SLOW TO PROCESS AND SLOW TO RESPOND.
--- NOTE | 2016-11-16 23:00 | NUR ---
SHIFT ASSESSMENT COMPLETED SEE FLOWSHEET. NO SIGNIFICANT CHANGES. PT GIVEN HONEY THICKENED LIQUIDS TO DRINK NO COUGHING NOTED DURING ASSISTANCE. ASSISTED DOING SMALL SIPS. COMPLETE BED BATH DONE AND ALL LINENS CHANGED
[2016-11-17] VITALS (14 sets, daily range): BP systolic 98–156; BP diastolic 45–66
--- NOTE | 2016-11-17 | NUR ---
SPO2 STABLE 99-100% O2 REDUCED TO 3L N/C. RT NOTIFIED OF CHANGE
--- NOTE | 2016-11-17 01:00 | NUR ---
PT SLEEPING WELL TOLERATING O2 AT 3L N/C
--- NOTE | 2016-11-17 03:00 | NUR ---
SHIFT REASSESSMENT COMPLETED SEE FLOWSHEET. NO SIGNIFICANT CHANGES
--- NOTE | 2016-11-17 03:30 | NUR ---
PT HAD EPISODE OF SPO2 DROPPING INTO LOW 80'S AND REQUIRED ORAL SUCTIONING OF THICK WHITE/COLEMAN SECRETIONS PT WAS UNABLE TO CLEAR ON HER OWN. PT HAD IMMEDIATE RESPONSE AND SPO2 RETURNED TO 98%. PT TOLERATED WELL
--- NOTE | 2016-11-17 03:56 | NUR ---
RADIOLOGY AT BEDSIDE FOR AM CXR
--- NOTE | 2016-11-17 06:05 | NUR ---
AM LAB DRAWN AND SENT FOR ANALYSIS, PT AWAKE DENIES NEEDS.
[2016-11-17 06:47] LABS: BASOPHILS 0.2 % (0-2); EOSINOPHILS 4.7 % (0-7); HEMATOCRIT 34.3 % (36.0-48.0); HEMOGLOBIN 10.9 g/dL (12-16); IMMATURE GRANULOCYTES 0.5 % (0-5); LYMPHOCYTES 13.9 % (15-50); MCH 26.2 pg (26.0-34.0); MCHC 31.8 g/dL (31.0-37.0); MCV 82.5 fL (80.0-100.0); MEAN PLATELET VOLUME 11.8 fL (7.4-10.4); MONOCYTES 8.4 % (2-11); NEUTROPHILS 72.3 % (40-80); PLATELET COUNT 417 10x3/uL (130-400); RBC 4.16 10x6/uL (4.00-5.40); RDW 15.9 % (11.5-14.5); WBC 17.3 10x3/uL (4.8-10.8)
--- NOTE | 2016-11-17 07:00 | NUR ---
PT ALERT, ORIENTED TO PERSON AND YEAR, REORIENTED, VSS, ABLE TO VOICE NEEDS, CVL TO RIGHT SUBCLAVIAN CDI, O2 3L NC, JACKSON IN PLACE, REPOSITIONED, WILL CONTINUE TO MONITOR
[2016-11-17 07:08] LABS: CALC OSMOLALITY 292 mosm/kg (275-300); CALCIUM 8.7 mg/dL (8.5-10.1); CARBON DIOXIDE 32.2 mmol/L (21.0-32.0); CHLORIDE - SERUM 104 mmol/L (98-107); CREATININE - SERUM 0.7 mg/dL (0.6-1.3); POTASSIUM - SERUM 3.7 mmol/L (3.5-5.1); SODIUM 144 mmol/L (136-145); UREA NITROGEN 22 mg/dL (7-18); eGFR NON AFRICAN AMERICAN 88 mL/min (90-120)
[2016-11-17 07:13] LABS: GLUCOSE 155 mg/dL (74-106); MAGNESIUM - SERUM 2.4 mg/dL (1.8-2.4)
--- NOTE | 2016-11-17 09:00 | NUR ---
PT TOLERATED BREAKFAST WELL, REMINDED AT TIMES TO TAKE SMALLER BITES AND TO DRINK SLOWLY, VSS, UP IN CHAIR, WILL CONTINUE TO MONITOR
--- NOTE | 2016-11-17 11:00 | NUR ---
PT TO DC TO REHAB, SPOKE WITH CASE MANAGEMENT, PT CURRENTLY UP IN CHAIR, VSKandace, WILL CONTINUE TO MONITOR
--- NOTE | 2016-11-17 12:00 | NUR ---
PT REPOSITIONED, VSS, NO CHANGES NOTED, TOF 06/14
--- NOTE | 2016-11-17 13:02 | NUR ---
PT UP IN CHAIR WATCHING TV, VSS, ABLE TO SUCTION SELF WHEN COUGHS, WILL CONTINUE TO MONITOR
--- NOTE | 2016-11-17 14:57 | NUR ---
Patient has been re-evaluated & accepted to inpatient rehab. Anticipate transfer this afternoon.
--- NOTE | 2016-11-17 15:30 | NUR ---
MANUEL DISCONTINUED PER ORDERS, TOELRATED WELL, VSS, TO DISCHARGE TO REHAB ROOM 1119-A, GOWN CHANGED AND PT READY TO DC, SISTER AT [facility] AND AWARE, ALL QUESTIONS ANSWERED, CALLED REPORT TO STEPHEN IN REHAB, SPECIFICALLY DISCUSSED HETAL DC ORDERS.
== END 2016-11-17 16:18 | DRG 37 ==
LOC: D.CVICU 10:16 → D.M2 10:16 → D.SDCHOLD 11-08 07:30 → D.CVICU 11-08 07:48
PROVIDERS: Family Medicine; Internal Medicine Pulmonary Disease; ADMIT Internal Medicine Cardiovascular Disease
PROC: 03UL0JZ Supplement Left Internal Carotid Artery with Synthetic Substitute, Open Approach (ICD-10-PCS; 2016-11-08)
PROC: 03CL0ZZ Extirpation of Matter from Left Internal Carotid Artery, Open Approach (ICD-10-PCS; principal; 2016-11-08 07:30)
PROC: 0BH17EZ Insertion of Endotracheal Airway into Trachea, Via Natural or Artificial Opening (ICD-10-PCS; 2016-11-14)
PROC: 5A1945Z Respiratory Ventilation, 24-96 Consecutive Hours (ICD-10-PCS; 2016-11-14)
DX: I65.22 Occlusion and stenosis of left carotid artery (principal); J96.21 Acute and chronic respiratory failure with hypoxia; I46.9 Cardiac arrest, cause unspecified; N39.0 Urinary tract infection, site not specified; G72.81 Critical illness myopathy; T17.920A Food in respiratory tract, part unspecified causing asphyxiation, initial encounter; I10 Essential (primary) hypertension; Z86.73 Personal history of transient ischemic attack (TIA), and cerebral infarction without residual deficits; E11.65 Type 2 diabetes mellitus with hyperglycemia; F79 Unspecified intellectual disabilities

== ENCOUNTER 2016-11-17 16:19 | Inpatient (IN) | payer MEDICARE ==
[~2016-11-17] VITALS: Ht 162.6 cm; Wt 79.4 kg
[~2016-11-17 16:19] MED LIST changes: +OMNICEF300 MG PO
[2016-11-18 14:13] VITALS: Ht 162.6 cm; Wt 79.4 kg
[2016-12-01] MEDS ORDERED: LANTUS INSULIN10 ML SC (09:08)
[2016-12-02 08:06] VITALS: BP 186/92
== END 2016-12-02 10:04 | DRG 91 ==
LOC: D.REHAB 16:19
PROVIDERS: ADMIT Emergency Medicine
DX: G72.81 Critical illness myopathy (principal); J96.21 Acute and chronic respiratory failure with hypoxia; G81.91 Hemiplegia, unspecified affecting right dominant side; N39.0 Urinary tract infection, site not specified; J98.11 Atelectasis; D72.829 Elevated white blood cell count, unspecified; T17.920D Food in respiratory tract, part unspecified causing asphyxiation, subsequent encounter; R13.12 Dysphagia, oropharyngeal phase; K21.9 Gastro-esophageal reflux disease without esophagitis; F79 Unspecified intellectual disabilities; E78.5 Hyperlipidemia, unspecified; M85.80 Other specified disorders of bone density and structure, unspecified site; R53.83 Other fatigue; R53.1 Weakness; F41.9 Anxiety disorder, unspecified

== ENCOUNTER → 2018-02-08 10:05 | Outpatient (CLI) | payer MEDICARE ==
[~2018-02-08 10:05] MED LIST changes: +LANTUS INSULIN10 ML SC
== END | disposition home or self-care (01) ==
LOC: D.US 10:05
DX: I65.23 Occlusion and stenosis of bilateral carotid arteries (principal)

== ENCOUNTER 2018-05-04 15:03 | Inpatient (IN) | payer MEDICARE ==
[~2018-05-04] VITALS: Ht 162.6 cm; Wt 86.4 kg
[2018-05-04 14:20] VITALS: BP 117/71
[2018-05-04 15:00] VITALS: BP 164/76
[2018-05-04 16:42] LABS: BASOPHILS 0.3 % (0-2); HEMATOCRIT 39.9 % (36.0-48.0); HEMOGLOBIN 13.3 g/dL (12-16); IMMATURE GRANULOCYTES 0.3 % (0-5); LYMPHOCYTES 25.8 % (15-50); MCHC 33.3 g/dL (31.0-37.0); MCV 81.1 fL (80.0-100.0); MEAN PLATELET VOLUME 12.1 fL (7.4-10.4); MONOCYTES 9.1 % (2-11); NEUTROPHILS 60.5 % (40-80); RBC 4.92 10x6/uL (4.00-5.40); RDW 14.3 % (11.5-14.5)
[2018-05-04 16:57] LABS: APTT 38.5 SECONDS (22.8-39.4); PROTIME 12.7 SECONDS (11.6-15.0)
[2018-05-04 16:58] LABS: ALBUMIN 3.1 g/dL (3.4-5.0); ALKALINE PHOSPHATASE 91 U/L (46-116); ALT (SGPT) 16 U/L (10-68); BILIRUBIN - TOTAL 0.23 mg/dL (0.2-1.3); CALC OSMOLALITY 293 mosm/kg (275-300); CALCIUM 9.2 mg/dL (8.5-10.1); CARBON DIOXIDE 29.1 mmol/L (21.0-32.0); CHLORIDE - SERUM 103 mmol/L (98-107); CREATININE - SERUM 0.9 mg/dL (0.6-1.3); GLUCOSE 217 mg/dL (74-106); POTASSIUM - SERUM 4.7 mmol/L (3.5-5.1); PROTEIN - SERUM 7.3 g/dL (6.4-8.2); SODIUM 141 mmol/L (136-145); UREA NITROGEN 28 mg/dL (7-18); eGFR NON AFRICAN AMERICAN 66 mL/min (90-120)
[2018-05-04 16:59] VITALS: BP 162/78
[2018-05-04 17:09] LABS: PLATELET COUNT 313 10x3/uL (130-400)
[2018-05-04 17:14] LABS: CKMB 0.6 U/L (0.0-3.6); CREATINE KINASE 24 UL (21-215); MAGNESIUM - SERUM 1.6 mg/dL (1.8-2.4); THYROID STIMULATING HORMONE 4.58 uIU/mL (0.36-3.74)
[2018-05-04 17:30] LABS: TROPONIN-I < 0.017 ng/mL (0.000-0.060)
[2018-05-04 19:11] LABS: APPEARANCE CLEAR (CLEAR); COLOR YELLOW (YELLOW)
[2018-05-04 19:12] LABS: BACTERIA MODERATE /hpf (NONE SEEN); BILIRUBIN NEGATIVE (NEGATIVE); EPITHELIAL CELLS 0-5 /hpf (0-5); GLUCOSE 50 mg/dL (NEGATIVE); KETONE NEGATIVE (NEGATIVE); NITRITE NEGATIVE (NEGATIVE); PROTEIN NEGATIVE (NEGATIVE); RED CELLS - URINE OCC /hpf (0-5); UROBILINOGEN NORMAL (NORMAL); WHITE CELLS - URINE 0-5 /hpf (0-5)
[2018-05-04 22:15] VITALS: BP 150/89
[2018-05-05] VITALS (7 sets, daily range): BP systolic 169–207; BP diastolic 75–112; Ht 162.6 cm; Wt 86.4 kg
[2018-05-05 08:11] LABS: BASOPHILS 0.3 % (0-2); EOSINOPHILS 4.9 % (0-7); HEMATOCRIT 40.3 % (36.0-48.0); HEMOGLOBIN 13.5 g/dL (12-16); IMMATURE GRANULOCYTES 0.3 % (0-5); LYMPHOCYTES 21.9 % (15-50); MCHC 33.5 g/dL (31.0-37.0); MCV 80.6 fL (80.0-100.0); MEAN PLATELET VOLUME 11.6 fL (7.4-10.4); MONOCYTES 8.7 % (2-11); NEUTROPHILS 63.9 % (40-80); PLATELET COUNT 299 10x3/uL (130-400); RDW 14.4 % (11.5-14.5); WBC 11.5 10x3/uL (4.8-10.8)
[2018-05-05 08:33] LABS: ALKALINE PHOSPHATASE 82 U/L (46-116); ALT (SGPT) 15 U/L (10-68); BILIRUBIN - TOTAL 0.45 mg/dL (0.2-1.3); CALCIUM 8.5 mg/dL (8.5-10.1); CARBON DIOXIDE 26.7 mmol/L (21.0-32.0); CHLORIDE - SERUM 106 mmol/L (98-107); SODIUM 143 mmol/L (136-145)
[2018-05-05 08:34] LABS: CALC OSMOLALITY 288 mosm/kg (275-300); CREATININE - SERUM 0.6 mg/dL (0.6-1.3); GLUCOSE 140 mg/dL (74-106); UREA NITROGEN 17 mg/dL (7-18); eGFR NON AFRICAN AMERICAN > 90 mL/min (90-120)
[2018-05-06 01:15] VITALS: BP 148/84
[2018-05-06 06:30] VITALS: BP 103/52
[2018-05-06 06:52] LABS: BASOPHILS 0.4 % (0-2); EOSINOPHILS 4.4 % (0-7); HEMATOCRIT 42.6 % (36.0-48.0); HEMOGLOBIN 14.2 g/dL (12-16); IMMATURE GRANULOCYTES 0.2 % (0-5); LYMPHOCYTES 22.1 % (15-50); MCH 27.4 pg (26.0-34.0); MCHC 33.3 g/dL (31.0-37.0); MCV 82.1 fL (80.0-100.0); MEAN PLATELET VOLUME 12.3 fL (7.4-10.4); MONOCYTES 8.5 % (2-11); NEUTROPHILS 64.4 % (40-80); PLATELET COUNT 303 10x3/uL (130-400); RBC 5.19 10x6/uL (4.00-5.40); RDW 14.5 % (11.5-14.5); WBC 12.2 10x3/uL (4.8-10.8)
[2018-05-06 07:16] LABS: ALKALINE PHOSPHATASE 79 U/L (46-116); ALT (SGPT) 16 U/L (10-68); BILIRUBIN - TOTAL 0.45 mg/dL (0.2-1.3); CALCIUM 8.6 mg/dL (8.5-10.1); CHLORIDE - SERUM 103 mmol/L (98-107); CREATININE - SERUM 0.7 mg/dL (0.6-1.3); POTASSIUM - SERUM 3.8 mmol/L (3.5-5.1); PROTEIN - SERUM 6.9 g/dL (6.4-8.2); SODIUM 141 mmol/L (136-145); UREA NITROGEN 19 mg/dL (7-18); eGFR NON AFRICAN AMERICAN 88 mL/min (90-120)
[2018-05-06 07:19] LABS: CALC OSMOLALITY 287 mosm/kg (275-300); GLUCOSE 190 mg/dL (74-106)
[2018-05-06 09:40] VITALS: BP 215/93
[2018-05-06 14:15] VITALS: BP 127/83
[2018-05-06 18:48] VITALS: BP 121/78
[2018-05-06 20:00] VITALS: BP 136/73
[2018-05-07 04:00] VITALS: BP 143/89
[2018-05-07 05:07] LABS: BASOPHILS 0.3 % (0-2); EOSINOPHILS 4.8 % (0-7); HEMATOCRIT 40.5 % (36.0-48.0); HEMOGLOBIN 13.3 g/dL (12-16); IMMATURE GRANULOCYTES 0.2 % (0-5); LYMPHOCYTES 29.1 % (15-50); MCH 26.7 pg (26.0-34.0); MCHC 32.8 g/dL (31.0-37.0); MCV 81.2 fL (80.0-100.0); MONOCYTES 9.2 % (2-11); NEUTROPHILS 56.4 % (40-80); PLATELET COUNT 319 10x3/uL (130-400); RBC 4.99 10x6/uL (4.00-5.40); RDW 14.4 % (11.5-14.5); WBC 11.5 10x3/uL (4.8-10.8)
[2018-05-07 05:19] LABS: ALKALINE PHOSPHATASE 82 U/L (46-116); BILIRUBIN - TOTAL 0.37 mg/dL (0.2-1.3); CALC OSMOLALITY 285 mosm/kg (275-300); CALCIUM 8.8 mg/dL (8.5-10.1); CARBON DIOXIDE 25.4 mmol/L (21.0-32.0); CHLORIDE - SERUM 104 mmol/L (98-107); CREATININE - SERUM 0.7 mg/dL (0.6-1.3); GLUCOSE 174 mg/dL (74-106); POTASSIUM - SERUM 3.9 mmol/L (3.5-5.1); PROTEIN - SERUM 6.9 g/dL (6.4-8.2); SODIUM 140 mmol/L (136-145); UREA NITROGEN 21 mg/dL (7-18); eGFR NON AFRICAN AMERICAN 88 mL/min (90-120)
[2018-05-07 05:20] LABS: ALT (SGPT) 11 U/L (10-68)
[2018-05-07 08:23] VITALS: BP 181/94
[2018-05-07 12:16] VITALS: BP 170/91
--- NOTE | 2018-05-07 12:47 | MORECARE ---
CASE MANAGEMENT DISCHARGE SUMMARY PATIENT: JEREMY PUCKETT UNIT: [id number] ADM DATE: 05/04/18 AGE: 72 : [birth year] SEX: F ROOM/BED: D.2215 AUTHOR: LEATHA MARROQUIN PHYSICIAN: REFERRING PHYSICIAN: CARRIE TINOCO MD DATE OF SERVICE: 05/07/18 Discharge Plan Patient Name: JEREMY PUCKETT [facility] : 1945 Planned Disposition: Nursing Facility [facility] Cert Anticipated Discharge Date: Discharge Date: Expected LOS: Initial Reviewer: [email or web address] Initial Review Date: 05/04/2018 Generated: 05/07/18 1:46 pm DCPIA - Discharge Planning Initial Assessment Updated by [email or web address]: Marine Diez on 05/07/18 12:44 pm * Is the patient Alert and Oriented? Yes * How many steps to enter\exit or inside your home? * PCP [facility] * Pharmacy [facility] * Preadmission Environment Business Analyst Project Manager Alf * Facility Name [facility] * ADLs Partial Dependent * List name and contact numbers for known caregivers / representatives who currently or will assist patient after discharge: SIERRA HALL [phone] * Verbal permission to speak to the caregivers and representatives has been obtained from the patient. N/A * Community resources currently utilized None * Additional services required to return to the preadmission environment? No * Can the patient safely return to the preadmission environment? Yes * Has this patient been hospitalized within the prior 30 days at any hospital? No Patient Name: JEREMY PUCKETT Page [phone] at 1247 All edits/amendments must be made on the electronic document DICTATION DATE: 05/07/18 1246 SIDEHAND: VERNELL 05/07/18 1246 RPT#: [id number] DC DATE: STATUS: ADM IN [facility] [address] [place] [address] END OF REPORT
--- NOTE | 2018-05-07 13:02 | MORECARE ---
CASE MANAGEMENT DISCHARGE SUMMARY PATIENT: JEREMY PUCKETT UNIT: [id number] ADM DATE: 05/04/18 AGE: 72 : [birth year] SEX: F ROOM/BED: D.2415 AUTHOR: LOPEZ,DOC PHYSICIAN: REFERRING PHYSICIAN: CARRIE TINOCO MD DATE OF SERVICE: 05/07/18 Discharge Plan Patient Name: JEREMY PUCKETT Facility: [facility]:[place] : 1945 Planned Disposition: Nursing Facility [facility] Cert Anticipated Discharge Date: Discharge Date: Expected LOS: Initial Reviewer: [email or web address] Initial Review Date: 05/04/2018 Generated: 05/07/18 2:02 pm Comments DCP- Discharge Planning Updated by [email or web address]: Marine Diez on 05/07/18 11:[address] Patient Name: JEREMY PUCKETT Admission Status: ER Accout number: [id number] Admission Date: 05-04-2018 : 1945 Admission Diagnosis: Attending: CARRIE TINOCO Current LOS: 3 Anticipated DC Date: Planned Disposition: Nursing Facility [facility] Cert Primary Insurance: MEDICARE A & B Discharge Planning Comments: Attempted to meet with patient to assess discharge planning needs, but she is unable to answer questions. 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 Patient was unable to answer questions. I attempted to call her sister Bo, but did not get an answer. Patient will be discharging back to [facility] she will go to a skilled bed per Taina. Taina stated that she is developmental delayed. IMM explained, but she is unable to sign. [facility] will pick her up at 2:00. We are now going to hold off on discharge now till sensitivities are back, I spoke with Chioma at [facility]. Technical Director: Marine Diez DCPIA - Discharge Planning Initial Assessment Updated by [email or web address]: Marine Diez on 05/07/18 12:44 pm * Is the patient Alert and Oriented? Yes * How many steps to enter\exit or inside your home? * PCP [facility] * Pharmacy [facility] * Preadmission Environment Cardiac Technologist Assisted * Facility Name [facility] * ADLs Partial Dependent * List name and contact numbers for known caregivers / representatives who currently or will assist patient after discharge: BO HALL [phone] * Verbal permission to speak to the caregivers and representatives has been obtained from the patient. N/A * Community resources currently utilized None * Additional services required to return to the preadmission environment? No * Can the patient safely return to the preadmission environment? Yes * Has this patient been hospitalized within the prior 30 days at any hospital? No Last DP export: 05/07/18 11:47 a Patient Name: JEREMY PUCKETT Page [id number] at 1302 All edits/amendments must be made on the electronic document DICTATION DATE: 05/07/18 1302 TELEVISION STATION MANAGER: VERNELL 05/07/18 1302 RPT#: [id number] DC DATE: STATUS: ADM IN [facility] [address] [place] [address] END OF REPORT
[2018-05-07 20:31] VITALS: BP 193/86
[2018-05-08 00:47] VITALS: BP 184/80
[2018-05-08 04:54] VITALS: BP 180/80
[2018-05-08 05:21] LABS: BASOPHILS 0.3 % (0-2); EOSINOPHILS 4.7 % (0-7); HEMATOCRIT 41.1 % (36.0-48.0); HEMOGLOBIN 13.3 g/dL (12-16); IMMATURE GRANULOCYTES 0.2 % (0-5); LYMPHOCYTES 23.6 % (15-50); MCH 26.4 pg (26.0-34.0); MCHC 32.4 g/dL (31.0-37.0); MCV 81.5 fL (80.0-100.0); MEAN PLATELET VOLUME 12.2 fL (7.4-10.4); MONOCYTES 8.5 % (2-11); NEUTROPHILS 62.7 % (40-80); PLATELET COUNT 307 10x3/uL (130-400); RBC 5.04 10x6/uL (4.00-5.40); RDW 14.6 % (11.5-14.5); WBC 10.9 10x3/uL (4.8-10.8)
[2018-05-08 05:50] LABS: ALBUMIN 3.1 g/dL (3.4-5.0); ALKALINE PHOSPHATASE 79 U/L (46-116); ALT (SGPT) 11 U/L (10-68); CALC OSMOLALITY 289 mosm/kg (275-300); CALCIUM 8.6 mg/dL (8.5-10.1); CARBON DIOXIDE 25.2 mmol/L (21.0-32.0); CHLORIDE - SERUM 106 mmol/L (98-107); CREATININE - SERUM 0.6 mg/dL (0.6-1.3); GLUCOSE 166 mg/dL (74-106); POTASSIUM - SERUM 3.8 mmol/L (3.5-5.1); SODIUM 144 mmol/L (136-145); eGFR NON AFRICAN AMERICAN > 90 mL/min (90-120)
[2018-05-08 06:00] LABS: UREA NITROGEN 11 mg/dL (7-18)
[2018-05-08 09:23] VITALS: BP 162/87
[2018-05-08 14:21] VITALS: BP 191/99
[2018-05-08 17:18] VITALS: BP 199/100
[2018-05-08 20:00] VITALS: BP 161/91
[2018-05-09] VITALS: BP 157/67
[2018-05-09 04:00] VITALS: BP 147/74
[2018-05-09 06:07] LABS: ALKALINE PHOSPHATASE 68 U/L (46-116); BILIRUBIN - TOTAL 0.37 mg/dL (0.2-1.3); CALC OSMOLALITY 290 mosm/kg (275-300); CALCIUM 8.5 mg/dL (8.5-10.1); CARBON DIOXIDE 24.1 mmol/L (21.0-32.0); CHLORIDE - SERUM 108 mmol/L (98-107); CREATININE - SERUM 0.5 mg/dL (0.6-1.3); GLUCOSE 168 mg/dL (74-106); POTASSIUM - SERUM 4.2 mmol/L (3.5-5.1); PROTEIN - SERUM 6.2 g/dL (6.4-8.2); SODIUM 144 mmol/L (136-145); UREA NITROGEN 13 mg/dL (7-18); eGFR NON AFRICAN AMERICAN > 90 mL/min (90-120)
[2018-05-09 06:22] LABS: ALT (SGPT) 17 U/L (10-68)
[2018-05-09 07:24] LABS: BASOPHILS 0.4 % (0-2); EOSINOPHILS 4.7 % (0-7); HEMATOCRIT 40.9 % (36.0-48.0); HEMOGLOBIN 13.1 g/dL (12-16); IMMATURE GRANULOCYTES 0.3 % (0-5); LYMPHOCYTES 24.9 % (15-50); MEAN PLATELET VOLUME 11.8 fL (7.4-10.4); MONOCYTES 8.9 % (2-11); NEUTROPHILS 60.8 % (40-80); PLATELET COUNT 281 10x3/uL (130-400); RBC 4.86 10x6/uL (4.00-5.40); RDW 14.8 % (11.5-14.5); WBC 9.7 10x3/uL (4.8-10.8)
[2018-05-09 07:33] LABS: MCV 84.2 fL (80.0-100.0)
[2018-05-09 08:20] VITALS: BP 164/96
[2018-05-09 12:42] VITALS: BP 197/87
[2018-05-09 15:22] VITALS: BP 105/52
[2018-05-09 20:41] VITALS: BP 139/58
[2018-05-10 00:33] VITALS: BP 154/50
[2018-05-10 05:34] LABS: BASOPHILS 0.4 % (0-2); EOSINOPHILS 5.4 % (0-7); HEMATOCRIT 37.4 % (36.0-48.0); HEMOGLOBIN 12.2 g/dL (12-16); IMMATURE GRANULOCYTES 0.2 % (0-5); LYMPHOCYTES 30.6 % (15-50); MCH 26.5 pg (26.0-34.0); MCHC 32.6 g/dL (31.0-37.0); MEAN PLATELET VOLUME 12.2 fL (7.4-10.4); MONOCYTES 9.3 % (2-11); NEUTROPHILS 54.1 % (40-80); PLATELET COUNT 311 10x3/uL (130-400); RDW 14.8 % (11.5-14.5); WBC 10.2 10x3/uL (4.8-10.8)
[2018-05-10 05:48] LABS: MCV 81.3 fL (80.0-100.0)
[2018-05-10 05:52] VITALS: BP 135/71
[2018-05-10 05:54] LABS: ALBUMIN 2.8 g/dL (3.4-5.0); ALKALINE PHOSPHATASE 60 U/L (46-116); CALC OSMOLALITY 283 mosm/kg (275-300); CALCIUM 8.3 mg/dL (8.5-10.1); CHLORIDE - SERUM 106 mmol/L (98-107); CREATININE - SERUM 0.6 mg/dL (0.6-1.3); GLUCOSE 141 mg/dL (74-106); PROTEIN - SERUM 6.2 g/dL (6.4-8.2); SODIUM 141 mmol/L (136-145); UREA NITROGEN 15 mg/dL (7-18); eGFR NON AFRICAN AMERICAN > 90 mL/min (90-120)
[2018-05-10 05:57] LABS: ALT (SGPT) 12 U/L (10-68); POTASSIUM - SERUM 3.5 mmol/L (3.5-5.1)
[2018-05-10 09:04] VITALS: BP 153/87
[2018-05-10] MEDS ORDERED: Augmentin 500-125 TA PO (11:16)
[2018-05-10] MEDS ORDERED: BACTRIM 400-801 TAB PO (11:16)
--- NOTE | 2018-05-10 12:26 | MORECARE ---
CASE MANAGEMENT DISCHARGE SUMMARY PATIENT: JEREMY PUCKETT UNIT: [id number] ADM DATE: 05/04/18 AGE: 72 : 47 SEX: F ROOM/BED: D.4245 AUTHOR: LOPEZ,DOC PHYSICIAN: REFERRING PHYSICIAN: CARRIE TINOCO MD DATE OF SERVICE: 05/10/18 Discharge Plan Patient Name: JEREMY PUCKETT Facility: [facility]:[place] : 1945 Planned Disposition: Nursing Facility [facility] Cert Anticipated Discharge Date: Discharge Date: Expected LOS: Initial Reviewer: [id number] Initial Review Date: 05/04/2018 Generated: 05/10/18 1:26 pm DCP- Discharge Planning Updated by [email or web address]: Marine Diez on 05/07/18 11:[address] Patient Name: JEREMY PUCKETT Admission Status: ER Accout number: [id number] Admission Date: 05-04-2018 : 1945 Admission Diagnosis: Attending: CARRIE TINOCO Current LOS: 3 Anticipated DC Date: Planned Disposition: Nursing Facility [facility] Cert Primary Insurance: MEDICARE A & B Discharge Planning Comments: Attempted to meet with patient to assess discharge planning needs, but she is unable to answer questions. 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 Patient was unable to answer questions. I attempted to call her sister Bo, but did not get an answer. Patient will be discharging back to [facility] she will go to a skilled bed per Taina. Taina stated that she is developmental delayed. IMM explained, but she is unable to sign. [facility] will pick her up at 2:00. We are now going to hold off on discharge now till sensitivities are back, I spoke with Chioma at [facility]. Electronic Assembler: Marine Diez DCPIA - Discharge Planning Initial Assessment Updated by [email or web address]: Marine Deiz on 05/07/18 12:44 pm * Is the patient Alert and Oriented? Yes * How many steps to enter\exit or inside your home? * PCP [facility] * Pharmacy [facility] * Preadmission Environment Long-Term Fdc * Facility Name [facility] * ADLs Partial Dependent * List name and contact numbers for known caregivers / representatives who currently or will assist patient after discharge: BO HALL [phone] * Verbal permission to speak to the caregivers and representatives has been obtained from the patient. N/A * Community resources currently utilized None * Additional services required to return to the preadmission environment? No * Can the patient safely return to the preadmission environment? Yes * Has this patient been hospitalized within the prior 30 days at any hospital? No External Providers External Provider: [facility] Next Contact Date: Service Request Date: Service Type: Resolution: Reviewer: Comments: Coverage Notice Reviewer: [email or web address] Hugo Diez Notice Issued Date-Time: 05/10/2018 12:06 Notice Type: IM Discharge Notice Notice Delivered To: Family Member Relationship to Patient: Power of Toys And Games Hand Finisher Police Officer Crime Prevention Name: REINA (SISTER) Delivery Method: HAND - Hand Delivered Jazmín Days: Prior Verbal Notification: Recipient Understood Notice: Yes Recipient Signature: Yes Med Rec Note Co-signed by Attending: Coverage Notice Comment: Last DP export: 05/07/18 12:02 p Patient Name: JEREMY PUCKETT Page 02547 at 1226 All edits/amendments must be made on the electronic document DICTATION DATE: 05/10/181225 E [place] SOLUTION ARCHITECT: VERNELL 05/10/181225 RPT#: [id number] DC DATE: STATUS: ADM IN [facility] [address] [place] [address] END OF REPORT
--- NOTE | 2018-05-10 12:34 | MORECARE ---
CASE MANAGEMENT DISCHARGE SUMMARY PATIENT: JEREMY PUCKETT UNIT: [id number] ADM DATE: 05/04/18 AGE: 72 : [birth year] SEX: F ROOM/BED: D.2215 AUTHOR: LOPEZ,DOC PHYSICIAN: REFERRING PHYSICIAN: CARRIE TINOCO MD DATE OF SERVICE: 05/10/18 Discharge Plan Patient Name: JEREMY PUCKETT Facility: [facility]:[place] : 1945 Planned Disposition: Nursing Facility [facility] Cert Anticipated Discharge Date: Discharge Date: Expected LOS: Initial Reviewer: [email or web address] Initial Review Date: 05/04/2018 Generated: 05/10/18 1:34 pm Comments DCP- Discharge Planning Updated by [email or web address]: Marine Diez on 05/10/18 11:[address] PATIENT HAS DISCHARGE ORDERS TO GO BACK TO [facility]. SHE WILL BE GOING TO A SKILLED BED. SISTER AT BEDSIDE IMM SIGNED AND GIVEN [facility] WILL BE TRANSPORTING PATIENT BACK TO THEIR FACILITY. CM WILL CONTINUE TO FOLLOW AND ASSIST WITH DC PLANNING NEEDED DCP- Discharge Planning Updated by [email or web address]: Marine Diez on 05/07/18 11:[address] Patient Name: JEREMY PUCKETT Admission Status: ER Accout number: [id number] Admission Date: 05-04-2018 : 1945 Admission Diagnosis: Attending: CARRIE TINOCO Current LOS: 3 Anticipated DC Date: Planned Disposition: Nursing Facility [facility] Cert Primary Insurance: MEDICARE A & B Discharge Planning Comments: Attempted to meet with patient to assess discharge planning needs, but she is unable to answer questions. 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 Patient was unable to answer questions. I attempted to call her sister Bo, but did not get an answer. Patient will be discharging back to [facility] she will go to a skilled bed per Taina. Taina stated that she is developmental delayed. IMM explained, but she is unable to sign. [facility] will pick her up at 2:00. We are now going to hold off on discharge now till sensitivities are back, I spoke with Chioma at [facility]. Orthotics Prosthetics Technician: Marine Diez DCPIA - Discharge Planning Initial Assessment Updated by [email or web address]: Marine Diez on 05/07/18 12:44 pm * Is the patient Alert and Oriented? Yes * How many steps to enter\exit or inside your home? * PCP [facility] * Pharmacy [facility] * Preadmission Environment Alf Shelter * Facility Name [facility] * ADLs Partial Dependent * List name and contact numbers for known caregivers / representatives who currently or will assist patient after discharge: BO HALL [phone] * Verbal permission to speak to the caregivers and representatives has been obtained from the patient. N/A * Community resources currently utilized None * Additional services required to return to the preadmission environment? No * Can the patient safely return to the preadmission environment? Yes * Has this patient been hospitalized within the prior 30 days at any hospital? No Coverage Notice Reviewer: [email or web address] - Marine Diez Notice Issued Date-Time: 05/10/2018 12:06 Notice Type: IM Discharge Notice Notice Delivered To: Family Member Relationship to Patient: Power of Dairy Manufacturing Technologist Automatic Car Wash Attendant Name: REINA (SISTER) Delivery Method: HAND - Hand Delivered Jazmín Days: Prior Verbal Notification: Recipient Understood Notice: Yes Recipient Signature: Yes Med Rec Note Co-signed by Attending: Coverage Notice Comment: Last DP export: 05/10/18 11:26 a Patient Name: JEREMY PUCKETT Page [id number] at 1234 All edits/amendments must be made on the electronic document DICTATION DATE: 05/10/18 1234 POLICE OFFICER BOOKING: VERNELL 05/10/18 1234 RPT#: [id number] DC DATE: STATUS: ADM IN [facility] [address] [place] [address] END OF REPORT
[2018-05-10 13:33] VITALS: BP 121/68
[2018-05-11 15:17] LABS: AEROBE ID Preliminary report (())
== END 2018-05-10 14:54 | DRG 689 ==
LOC: D.ER 15:03 → D.EDHOLD 17:49 → D.MS 17:49
PROVIDERS: Family Medicine; ADMIT Family Medicine
DX: N39.0 Urinary tract infection, site not specified (principal); G93.41 Metabolic encephalopathy; G72.81 Critical illness myopathy; R41.82 Altered mental status, unspecified; D72.829 Elevated white blood cell count, unspecified; E11.9 Type 2 diabetes mellitus without complications; I10 Essential (primary) hypertension; E86.0 Dehydration; Z86.73 Personal history of transient ischemic attack (TIA), and cerebral infarction without residual deficits